=== PATIENT | female | born 1965 | race Caucasian/White ===

== ENCOUNTER → 2016-06-03 | Outpatient (CLI) | payer MEDICARE ==
--- NOTE | 2016-06-04 16:11 | XR ---
EXAMINATION TYPE: XR chest 2V DATE OF EXAM: 06/03/2016 3:08 PM COMPARISON: Prior chest x-ray November HISTORY: Cough TECHNIQUE: Frontal and lateral views of the chest are obtained. FINDINGS: There is no focal air space opacity, pleural effusion, or pneumothorax seen. The cardiac silhouette size is within normal limits. Port-A-Cath has been removed in the interval. There is bronc hial wall thickening. Positive spine sign noted on the lateral exam. The osseous structures are inta ct. IMPRESSION: Difficult to exclude a lower lobe pneumonia seen on the lateral exam but not localized o n the frontal view with certainty. Possible right lower lobe pneumonia. Follow-up suggested.
== END | disposition home or self-care (01) ==
LOC: RADXRYALE 14:58
PROVIDERS: ATTEND Internal Medicine
DX: R05 Cough (principal)
CPT/HCPCS: 71020

== ENCOUNTER → 2016-06-16 | Outpatient (CLI) | payer MEDICARE ==
--- NOTE | 2016-06-17 08:32 | XR ---
EXAMINATION TYPE: XR chest 2V DATE OF EXAM: 06/16/2016 10:29 AM COMPARISON: Prior chest x-ray third of June 2016 HISTORY: Pneumonia, cough and shortness of breath TECHNIQUE: Frontal and lateral views of the chest are obtained. FINDINGS: No significant interval change. Cardiomediastinal silhouette, pulmonary vascularity and hi la are within normal limits. There is no airspace disease, pneumothorax, or pleural effusion. Promine nt lung volume may be indicative of COPD. Improvement in the density seen on the lateral exam. Bronch ial wall thickening is present. IMPRESSION: Correlate for bronchitis, reactive airways disease
== END | disposition home or self-care (01) ==
LOC: RADXRYALE 10:17
PROVIDERS: ATTEND Internal Medicine
DX: J18.9 Pneumonia, unspecified organism (principal)
CPT/HCPCS: 71020

== ENCOUNTER → 2016-06-24 | Outpatient (CLI) | payer MEDICARE ==
--- NOTE | 2016-06-24 19:56 | CT ---
EXAMINATION TYPE: CT chest w con DATE OF EXAM: 06/24/2016 7:21 PM COMPARISON: 12/06/2013 HISTORY: Pt states of pneumonia. Hx of lymphoma. CT DLP: 790 mGycm Automated exposure control for dose reduction was used. CONTRAST: CT scan of the chest is performed with IV Contrast, patient injected with 90 mL of Omnipaque 300. FINDINGS: There is a linear 3 x 1 cm area of consolidation and atelectasis in the posterior medial right lower lobe. The other lung carrera are clear. There is no pleural effusion. Heart size is normal. There is n o pericardial effusion. There are no hilar masses. There are small mediastinal lymph nodes that measu re up to 1 cm. There is density anterior to the pulmonary artery that measures 3.5 x 1.5 cm consisten t with mild adenopathy or mediastinal mass. There is no evidence of aortic aneurysm or dissection. Aamir ny thorax is intact. IMPRESSION: Compared to the old CT scan of 12/06/2013 the enlarged mediastinal lymph nodes that were p resent are decreased significantly in size. There is a residual 3.5 x 1.5 cm anterior mediastinal den sity that is stable. There is essentially complete clearing of the right axillary adenopathy compared to old exam. There is new linear infiltrate and atelectasis in the right lower lobe. The clinical significance of this is not clear.
== END | disposition home or self-care (01) ==
LOC: RADCTMAIN 18:45
PROVIDERS: ATTEND Internal Medicine Hematology & Oncology
DX: C85.90 Non-Hodgkin lymphoma, unspecified, unspecified site (principal); J98.11 Atelectasis; R91.8 Other nonspecific abnormal finding of lung field; R59.0 Localized enlarged lymph nodes
CPT/HCPCS: 71260; Q9967

== ENCOUNTER 2017-02-18 17:59 | Emergency (ER) | payer MEDICARE ==
[2017-02-18 18:11] VITALS: BP 141/75; PULSE 113; RESP 18; TEMP 97.6
--- NOTE | 2017-02-18 18:19 | ED ---
General Adult HPI - General Chief complaint: Extremity Injury, Lower Stated complaint: Knee Injury, numb from hip down Time Seen by Provider: 02/18/17 18:13 Source: patient, RN notes reviewed Mode of arrival: ambulatory Limitations: no limitations - History of Present Illness Initial comments: 51-year-old female presents emergency 5 chief complaint of left knee pain. Patient states that she twisted her knee. Patient states now has pain to the anterior aspect the knee. Patient states his history of knee injury from years ago and never really had followed up on. Patient states now this pain has reoccurred. Patient denies any hip pain or ankle pain she states the numbness type pain throughout the leg. Patient denies any other symptoms at this time. Patient is able to ambulate. Patient denies any recent fever, chills, shortness of breath, chest pain, back pain, abdominal pain, nausea vomiting, numbness or tingling, dysuria or hematuria, constipation or diarrhea, headaches or visual changes, or any other current symptoms. - Related Data Home Medications Medication Instructions Recorded Confirmed No Known Home Medications [No 10/04/14 10/04/14 Known Home Medications] Allergies Allergy/AdvReac Type Severity Reaction Status Date / Time morphine AdvReac Unknown Nausea & Verified 02/18/17 18:11 Vomiting Review of Systems ROS Statement: Those systems with pertinent positive or pertinent negative responses have been documented in the HPI. ROS Other: All systems not noted in ROS Statement are negative. Past Medical History Past Medical History: Cancer Additional Past Medical History / Comment(s): hodgkins lymphoma, migraines History of Any Multi-Drug Resistant Organisms: None Reported Past Surgical History: Section, Hysterectomy, Orthopedic Surgery, Tubal Ligation Additional Past Surgical History / Comment(s): X2, BONE MARROW , portacath insertion Past Anesthesia/Blood Transfusion Reactions: Motion Sickness Past Psychological History: No Psychological Hx Reported Smoking Status: Former smoker Past Alcohol Use History: None Reported Past Drug Use History: None Reported - Past Family History Mother Family Medical History: No Reported History General Exam - General Exam Comments Initial Comments: General: The patient is awake and alert, in no distress, and does not appear acutely ill. Neck: The neck is supple, there is no tenderness. Cardiovascular: There is a regular rate and rhythm. No murmur, rub or gallop is appreciated. Respiratory: Lungs are clear to auscultation, respirations are non-labored, breath sounds are equal. No wheezes, stridor, rales, or rhonchi. Musculoskeletal: Sensation intact with 2+ pulses. Left flexion. Turkish motion of left hip. Patient does have pain with full extension of left knee and tenderness to the anterior aspect. Patient has no pain to palpation of the left ankle with no swelling noted. Neurological: CN II-XII intact, There are no obvious motor or sensory deficits. Coordination appears grossly intact. Speech is normal. Skin: Skin is warm and dry and no rashes or lesions are noted. Psychiatric: Normal mood and affect. Limitations: no limitations Course Vital Signs 02/18/17 18:04 Temperature 97.6 F Pulse Rate 113 H Respiratory 18 Rate Blood Pressure 141/75 O2 Sat by Pulse 95 Oximetry Medical Decision Making - Medical Decision Making 51-year-old presents with what appears to be a left knee sprain. Patient x- rays. We discussed continued follow-up dorsal. We discussed return parameters outpatient family's questions. He stated that she understood and she is very plan. All questions have any actual be discharged. - Radiology Data Radiology results: report reviewed, image reviewed Disposition Clinical Impression: Knee sprain Disposition: HOME SELF-CARE Condition: Stable Instructions: Knee Pain (ED) Additional Instructions: Please use medication as discussed. Please follow up with family doctor if symptoms have not improved over the next two days. Please return to the emergency room if your symptoms increase or worsen or for any other concerns. Referrals: Josefa St MD [Primary Care Provider] - 1-2 days Tacos Ochoa MD [STAFF PHYSICIAN] - 1-2 days Time of Disposition: 18:44
--- NOTE | 2017-02-18 18:41 | XR ---
PROCEDURE: XR knee complete LT DATE AND TIME: 02/18/2017 6:29 PM REFERRING PHYSICIAN: Vidya Clark CLINICAL INDICATION: PHH, Pain after twisting injury 3 days ago TECHNIQUE: 3 views. COMPARISON: None FINDINGS: There is no fracture or malalignment. The soft tissues are unremarkable. IMPRESSION: NO ACUTE PROCESS.
== END 2017-02-18 18:56 | disposition home or self-care (01) ==
LOC: EC 17:59
DX: S83.92XA Sprain of unspecified site of left knee, initial encounter (principal); Z87.891 Personal history of nicotine dependence; Z85.71 Personal history of Hodgkin lymphoma; Z88.5 Allergy status to narcotic agent; X50.1XXA Overexertion from prolonged static or awkward postures, initial encounter
CPT/HCPCS: 99283

== ENCOUNTER → 2017-04-24 | Outpatient (CLI) | payer MEDICARE ==
--- NOTE | 2017-04-27 07:56 | MM ---
Reason for exam: screening (asymptomatic). Last mammogram was performed 1 year and 5 months ago. History: Patient has history of other cancer at age 48. Family history of breast cancer in 2 maternal aunts. Physical Findings: A clinical breast exam by your physician is recommended on an annual basis and results should be correlated with mammographic findings. MG Screening Mammo w CAD Bilateral CC and MLO view(s) were taken. Prior study comparison: November 22, 2015, bilateral MG screening mammo w CAD. June 13, 2014, bilateral MG screening mammo w CAD. April 27, 2013, bilateral digital screening mammo w/CAD. There are scattered fibroglandular densities. There is chronic nodularity in the left breast. No significant changes when compared with prior studies. ASSESSMENT: Negative, BI-RAD 1 RECOMMENDATION: Routine screening mammogram of both breasts in 1 year.
== END | disposition home or self-care (01) ==
LOC: RADMAMWWP 10:27
PROVIDERS: ATTEND Internal Medicine
DX: Z12.31 Encounter for screening mammogram for malignant neoplasm of breast (principal)

== ENCOUNTER → 2018-01-22 | Outpatient (CLI) | payer MEDICARE ==
--- NOTE | 2018-01-22 15:16 | MR ---
EXAMINATION TYPE: MR lumbar spine wo/w con DATE OF EXAM: 01/22/2018 COMPARISON: Lumbar spine x-ray May 18, 2017. Prior CT chest abdomen and pelvis December 06, 2013 HISTORY: LBP, lt side sciatica x 4 years. History of Hodgkin lymphoma. TECHNIQUE: Multiplanar, multisequence images of the lumbar spine is performed without and with IV contrast, util izing 7.5 mL intravenous Gadavist FINDINGS: Sagittal images of the lumbar spine show vertebral body heights and alignment to appear sat isfactory. Multilevel disc desiccation is seen but disc space heights are fairly well-maintained with exception of mild disc space narrowing L5-S1 level. No suspicious posterior disc herniations are see n on sagittal images. The conus medullaris is slightly lower in position ending superior L2 level. N o abnormal signal is present. The bone marrow signal intensity is within normal limits. No suspicious postcontrast enhancement is seen. Axial images show the T12-L1, L1-L2, L2-L3, and L3-L4 levels all to appear within normal limits. Axial images at the L4-L5 level show mild facet degenerative changes and ligamentum flavum hypertroph y mildly effacing posterior lateral thecal sac. There is mild broad disc bulge but spinal canal is pr eserved. Bilateral neural foramina show mild anterior inferior neural foraminal narrowing. Axial images at L5-S1 level show moderate facet degenerative changes bilaterally. Spinal canal is pre served. Bilateral neural foramina are patent. No suspicious retroperitoneal findings are identified. No definitive suspicious recurrent retroperito ema adenopathy is noted. No suspicious enhancement is noted. IMPRESSION: Mild degenerative changes in the lower lumbar spine as detailed above. No significant fin ding is seen to account for patient's left-sided radiculopathy type symptoms.
== END ==
LOC: RADMRIMAIN 13:59
PROVIDERS: ATTEND Internal Medicine
DX: M48.07 Spinal stenosis, lumbosacral region (principal); M99.73 Connective tissue and disc stenosis of intervertebral foramina of lumbar region; M47.817 Spondylosis without myelopathy or radiculopathy, lumbosacral region
CPT/HCPCS: 72158; A9581

== ENCOUNTER → 2018-02-04 | Outpatient (CLI) | payer MEDICARE ==
--- NOTE | 2018-02-04 09:51 | US ---
EXAMINATION TYPE: US pelvic complete DATE OF EXAM: 02/04/2018 COMPARISON: CT 12/06/2013 CLINICAL HISTORY: R19.05 SUPRAPUBIC MASS,R59 LYMPHADENOPATHY. Palpable lump in right pubic region. H ysterectomy, right ovary removed. History of lymphoma TECHNIQUE: . Transabdominal sonographic images of the pelvis were acquired. Date of LMP: 1991 EXAM MEASUREMENTS: Uterus: Surgically absent Endometrial Stripe: Surgically absent Right Ovary: Surgically absent Left Ovary: 2.5 x 1.2 x 1.8 cm 1. Uterus: Surgically absent 2. Endometrium: Surgically absent 3. Right Ovary: Surgically absent 4. Left Ovary: wnl 5. Bilateral Adnexa: wnl 6. Posterior cul-de-sac: wnl Hyperechoic area visualized at the patient's palpable measuring 2.6 x 1.3 x 1.3 cm, possible lipoma v s other etiology. A lymph node could be considered. This is not a typical appearance for a lymph node . Pelvic CT is recommended for additional evaluation. IMPRESSION: 1. Echogenic foci within the palpable region could be a complex lymph node. Recommend CT pelvis for a dditional evaluation. 2. Pelvic ultrasound is otherwise unremarkable.
--- NOTE | 2018-02-04 09:53 | US ---
EXAMINATION TYPE: US abdomen complete DATE OF EXAM: 02/04/2018 COMPARISON: CT 12/06/2013 CLINICAL HISTORY: R19.05 SUBRAPUBIC MASS,R59 LYMPHADENOPATHY. History of lymphoma. Difficult and limi andres exam due to patient's body habitus EXAM MEASUREMENTS: Liver Length: 16.8 cm Gallbladder Wall: 0.2 cm CBD: 0.6 cm Spleen: 9.7 cm Right Kidney: 10.5 x 4.5 x 4.5 cm Left Kidney: 11.6 x 5.2 x 4.5 cm Pancreas: Obscured by bowel gas Liver: Heterogeneous and echogenic echotexture. Findings can be compatible with moderate fatty infil tration. Hypoechoic area visualized adjacent to the gallbladder measuring 0.8 x 0.6x 0.9, possible fa tty sparring vs other Gallbladder: No stones visualized Evidence for sonographic Zabala's sign: No CBD: Measuring upper limits of normal, distal portion obscured by bowel gas Spleen: wnl Right Kidney: No hydronephrosis or masses seen Left Kidney: No hydronephrosis or masses seen Upper IVC: wnl Abd Aorta: Proximal portion obscured by bowel gas, visualized portions wnl IMPRESSION: 1. Moderate fatty infiltration of the liver.
== END | disposition home or self-care (01) ==
LOC: RADUSWWP 07:06
PROVIDERS: ATTEND Internal Medicine Hematology & Oncology
DX: K76.0 Fatty (change of) liver, not elsewhere classified (principal); R19.05 Periumbilic swelling, mass or lump
CPT/HCPCS: 76700; 76856

== ENCOUNTER 2018-03-17 09:01 | Day surgery (SDC) | payer MEDICARE ==
[2018-03-17] MEDS ORDERED: ALPRAZolam 0.5 MG TAB PO ONE (09:16)
[2018-03-17 09:19] VITALS: BP 157/92; PULSE 82; RESP 18; TEMP 97.7
--- NOTE | 2018-03-17 10:49 | US ---
EXAMINATION TYPE: US biopsy soft tissue/muscle DATE OF EXAM: 03/17/2018 HISTORY: Pubic mass. FINDINGS: Maximal barrier technique was utilized. The skin overlying a suitable path to the patient' s pubic mass was localized with ultrasound and the overlying skin prepped and draped. Ultrasound was utilized with sterile technique. Lidocaine was used for local anesthesia. A skin kristina was made wit h a scalpel. An 18-gauge needle was advanced under direct ultrasound guidance and core specimen obta ined of the mass. Specimen submitted on wet Telfa to Pathology. Following the procedure, hemostasis achieved and the patient is discharged in stable condition without complication. IMPRESSION:STATUS POST ULTRASOUND GUIDED CORE BIOPSY OF pubic MASS, PATHOLOGY IS PENDING. THIS PROCE DURE IS PERFORMED BY THE UNDERSIGNED.
== END 2018-03-17 10:40 | disposition home or self-care (01) ==
LOC: RADPROMAIN 09:01
PROVIDERS: ATTEND Internal Medicine Hematology & Oncology
DX: R19.09 Other intra-abdominal and pelvic swelling, mass and lump (principal); C85.90 Non-Hodgkin lymphoma, unspecified, unspecified site
CPT/HCPCS: 20206; 49180; 76942; 88305

== ENCOUNTER → 2018-07-24 | Outpatient (CLI) | payer MEDICARE ==
--- NOTE | 2018-07-26 10:50 | PE ---
EXAMINATION TYPE: PET CT fusion skull to thigh DATE OF EXAM: 07/24/2018 COMPARISON: CT chest 06/24/2016 Prior PET/CT: 07/08/2014 HISTORY: Lymphoma TECHNIQUE: Following the intravenous administration of 14.4 mCi of F-18 FDG, whole body images are p erformed from the skull base to the midthigh. Images are reviewed on the computer in the coronal, ax ial, and sagittal planes. Reconstructed rotating images are created on independent workstation and r eviewed on the computer. A localization and attenuation correction CT is performed in conjunction w ith the PET scan. DLP: 449.70 mGycm SCAN: Subsequent Blood glucose: 109 mg/dL Average Mediastinum SUV: 1.2 Average Liver SUV: 1.7 FINDINGS: NECK: No abnormal uptake THORAX: No abnormal uptake. A pretracheal lymph node which is not enlarged by CT criteria measures 0.8 cm and has an SUV value 1. 14. ABDOMEN: No abnormal uptake PELVIS: No abnormal uptake OSSEOUS STRUCTURES: No abnormal uptake LOCALIZATION CT: There is some mild prominence of the left submandibular gland. Minimal coronary ruy ry calcification is present. The ascending thoracic aorta at the level of main pulmonary artery is 2. 8 cm patent main pulmonary artery bifurcation is 2.4 cm. In the pretracheal space there is a somewhat prominent lymph node with a transverse dimension of 0.8 cm which is not enlarged by CT criteria. Couple small shotty nodes in the anterior superior mediastin um. No abnormal radiotracer accumulation is evident within the structures. The pretracheal lymph node has an SUV value 1.14. COMPARISON: Findings are similar to 2013. IMPRESSION: 1. No suspicious changes to suggest recurrent or metastatic lymphoma.
== END | disposition home or self-care (01) ==
LOC: RADPETMAIN 07:37
PROVIDERS: ATTEND Internal Medicine Hematology & Oncology
DX: C81.71 Other Hodgkin lymphoma, lymph nodes of head, face, and neck (principal)
CPT/HCPCS: 78815; A9552

== ENCOUNTER → 2018-07-26 | Outpatient (CLI) | payer MEDICARE ==
--- NOTE | 2018-07-27 09:21 | MM ---
Reason for exam: screening (asymptomatic). Last mammogram was performed 1 year and 3 months ago. History: Patient has history of other cancer at age 48. Family history of breast cancer in 2 maternal aunts. Physical Findings: A clinical breast exam by your physician is recommended on an annual basis and results should be correlated with mammographic findings. MG Screening Mammo w CAD Bilateral CC and MLO view(s) were taken. Prior study comparison: April 24, 2017, bilateral MG screening mammo w CAD. November 22, 2015, bilateral MG screening mammo w CAD. The breast tissue is heterogeneously dense. This may lower the sensitivity of mammography. There are benign appearing round calcifications bilaterally. There is chronic nodularity in the left breast. There is no discrete abnormality. ASSESSMENT: Benign, BI-RAD 2 RECOMMENDATION: Routine screening mammogram of both breasts in 1 year.
== END | disposition home or self-care (01) ==
LOC: RADMAMWWP 07:46
PROVIDERS: ATTEND Internal Medicine
DX: Z12.31 Encounter for screening mammogram for malignant neoplasm of breast (principal)
CPT/HCPCS: 77067

== ENCOUNTER → 2020-02-27 | Outpatient (CLI) | payer MEDICARE ==
--- NOTE | 2020-02-28 13:58 | MM ---
Reason for exam: screening (asymptomatic). Last mammogram was performed 1 year and 7 months ago. History: Patient has history of other cancer at age 48. Family history of breast cancer in 2 maternal aunts. Physical Findings: A clinical breast exam by your physician is recommended on an annual basis and results should be correlated with mammographic findings. MG Screening Mammo w CAD Bilateral CC and MLO view(s) were taken. Prior study comparison: July 26, 2018, bilateral MG screening mammo w CAD. April 24, 2017, bilateral MG screening mammo w CAD. There is chronic nodularity in the left breast. No significant changes when compared with prior studies. ASSESSMENT: Benign, BI-RAD 2 RECOMMENDATION: Routine screening mammogram of both breasts in 1 year.
== END | disposition home or self-care (01) ==
LOC: RADMAMWWP 13:21
PROVIDERS: ATTEND Internal Medicine
DX: Z12.31 Encounter for screening mammogram for malignant neoplasm of breast (principal)
CPT/HCPCS: 77067

== ENCOUNTER 2020-11-27 12:52 | Inpatient (IN) | payer MEDICARE ==
[2020-11-27] MEDS ORDERED: NITROGLYCERIN OINT 1 INCH/GM PACKET TOPICAL STA (13:23)
[2020-11-27] MEDS ORDERED: ASPIRIN 81 MG PO STA (13:23)
[2020-11-27] MEDS ORDERED: SODIUM CHLORIDE 0.9% 500 ML 500 ML IV STA (13:23)
--- NOTE | 2020-11-27 13:26 | ED ---
General Adult HPI - General Chief complaint: Chest Pain Stated complaint: chest pain Time Seen by Provider: 11/27/20 13:00 Source: patient, RN notes reviewed, old records reviewed Mode of arrival: wheelchair Limitations: no limitations - History of Present Illness Initial comments: This a 55-year-old female whose past medical history significant for high cholesterol. Patient states she comes to the emergency department today because she's been having intermittent chest pain since Thursday. Patient states the pain when it comes it makes her short of breath and radiates down to both arms and she has had some vomiting associated with. Patient states currently she is chest pain-free. Patient states the pain sometimes will last upwards of 4 hours . Patient states it is a pressure sensation in the middle of her chest. Patient states she's not had any heart problems in the past. Patient denies any recent fever chills or cough. Patient denies any swelling in her legs or calf tenderness. Patient denies abdominal pain. Patient denies nausea vomiting currently. - Related Data Home Medications Medication Instructions Recorded Confirmed Aspirin 81 mg PO ONCE 11/27/20 11/27/20 Ibuprofen [Motrin] 800 mg PO Q8H PRN 11/27/20 11/27/20 Allergies Allergy/AdvReac Type Severity Reaction Status Date / Time morphine AdvReac Unknown Nausea & Verified 11/27/20 13:58 Vomiting Review of Systems ROS Statement: Those systems with pertinent positive or pertinent negative responses have been documented in the HPI. ROS Other: All systems not noted in ROS Statement are negative. Past Medical History Past Medical History: Cancer Additional Past Medical History / Comment(s): hodgkins lymphoma, migraines History of Any Multi-Drug Resistant Organisms: None Reported Past Surgical History: Section, Hysterectomy, Orthopedic Surgery, Tubal Ligation Additional Past Surgical History / Comment(s): X2, BONE MARROW 12/28/12, portacath insertion insertion and removal. Past Anesthesia/Blood Transfusion Reactions: No Reported Reaction Past Psychological History: No Psychological Hx Reported Smoking Status: Never smoker Past Alcohol Use History: None Reported Past Drug Use History: None Reported - Past Family History Mother Family Medical History: No Reported History General Exam - General Exam Comments Initial Comments: GENERAL: Patient is well-developed and well-nourished. Patient is nontoxic and well- hydrated and is in no acute distress. ENT: Neck is soft and supple. No significant lymphadenopathy is noted. Oropharynx is clear. Moist mucous membranes. Neck has full range of motion without eliciting any pain. EYES: The sclera were anicteric and conjunctiva were pink and moist. Extraocular movements were intact and pupils were equal round and reactive to light. Eyelids were unremarkable. PULMONARY: Unlabored respirations. Good breath sounds bilaterally. No audible rales rhon chi or wheezing was noted. CARDIOVASCULAR: There is a regular rate and rhythm without any murmurs gallops or rubs. ABDOMEN: Soft and nontender with normal bowel sounds. No palpable organomegaly was noted. There is no palpable pulsatile mass. SKIN: Skin is clear with no lesions or rashes and otherwise unremarkable. NEUROLOGIC: Patient is alert and oriented x3. Cranial nerves II through XII are grossly intact. Motor and sensory are also intact. Normal speech, volume and content. Symmetrical smile. MUSCULOSKELETAL: Normal extremities with adequate strength and full range of motion. No lower extremity swelling or edema. No calf tenderness. LYMPHATICS: No significant lymphadenopathy is noted PSYCHIATRIC: Normal psychiatric evaluation. Limitations: no limitations Course Vital Signs 11/27/20 11/27/20 12:55 14:32 Temperature 98.3 F Pulse Rate 102 H 94 Respiratory 19 18 Rate Blood Pressure 167/94 154/94 O2 Sat by Pulse 98 98 Oximetry Medical Decision Making - Medical Decision Making EKG shows sinus tachycardia at 101 bpm GA interval 122 QRS is 88 QT interval 372 QTC is 42. Patient's EKG shows T-wave inversions in leads 1 and aVL as well as precordial leads V2 through the 6. Patient also has a biphasic T-wave in V3 Chest shows no acute abnormality. Patient's troponin was elevated so started the patient on heparin after heparin bolus. I spoke with cardiology he wanted the patient heparin Nitropaste and Coreg I spoke with Dr. Bishop he agreed to admit the patient admitted the patient wrote admitting orders. I continued as per heparin Nitropaste before and I consult to cardiology - Lab Data Result diagrams: 11/27/20 13:29 11/27/20 13:29 Lab Results 11/27/20 11/27/20 11/27/20 Range/Units 13:29 13: 13:29 WBC 12.3 H (3.8-10.6) k/uL RBC 5.15 (3.80-5.40) m/uL Hgb 14.9 (11.4-16.0) gm/dL Hct 42.1 (34.0-46.0) % MCV 81.8 (80.0-100.0) fL MCH 28.9 (25.0-35.0) pg MCHC 35.3 (31.0-37.0) g/dL RDW 12.8 (11.5-15.5) % Plt Count 217 (150-450) k/uL MPV 6.7 Neutrophils % 67 % Lymphocytes % 27 % Monocytes % 4 % Eosinophils % 1 % Basophils % 0 % Neutrophils # 8.3 H (1.3-7.7) k/uL Lymphocytes # 3.3 (1.0-4.8) k/uL Monocytes # 0.5 (0-1.0) k/uL Eosinophils # 0.1 (0-0.7) k/uL Basophils # 0.0 (0-0.2) k/uL PT 10.2 (9.0-12.0) sec INR 0.9 (<1.2) APTT 23.4 (22.0-30.0) sec Sodium 140 (137-145) mmol/L Potassium 4.1 (3.5-5.1) mmol/L Chloride 104 (98-107) mmol/L Carbon Dioxide 27 (22-30) mmol/L Anion Gap 9 mmol/L BUN 16 (7-17) mg/dL Creatinine 0.72 (0.52-1.04) mg/dL Est GFR (CKD-EPI)AfAm >90 (>60 ml/min/1.73 sqM) Est GFR (CKD-EPI)NonAf >90 (>60 ml/min/1.73 sqM) Glucose 152 H (74-99) mg/dL Calcium 9.7 (8.4-10.2) mg/dL Magnesium 1.9 (1.6-2.3) mg/dL Total Bilirubin 0.7 (0.2-1.3) mg/dL AST 51 H (14-36) U/L ALT 28 (4-34) U/L Alkaline Phosphatase 70 (38-126) U/L Troponin I (0.000-0.034) ng/mL Total Protein 7.0 (6.3-8.2) g/dL Albumin 4.3 (3.5-5.0) g/dL 11/27/20 Range/Units 13:29 WBC (3.8-10.6) k/uL RBC (3.80-5.40) m/uL Hgb (11.4-16.0) gm/dL Hct (34.0-46.0) % MCV (80.0-100.0) fL MCH (25.0-35.0) pg MCHC (31.0-37.0) g/dL RDW (11.5-15.5) % Plt Count (150-450) k/uL MPV Neutrophils % % Lymphocytes % % Monocytes % % Eosinophils % % Basophils % % Neutrophils # (1.3-7.7) k/uL Lymphocytes # (1.0-4.8) k/uL Monocytes # (0-1.0) k/uL Eosinophils # (0-0.7) k/uL Basophils # (0-0.2) k/uL PT (9.0-12.0) sec INR (<1.2) APTT (22.0-30.0) sec Sodium (137-145) mmol/L Potassium (3.5-5.1) mmol/L Chloride (98-107) mmol/L Carbon Dioxide (22-30) mmol/L Anion Gap mmol/L BUN (7-17) mg/dL Creatinine (0.52-1.04) mg/dL Est GFR (CKD-EPI)AfAm (>60 ml/min/1.73 sqM) Est GFR (CKD-EPI)NonAf (>60 ml/min/1.73 sqM) Glucose (74-99) mg/dL Calcium (8.4-10.2) mg/dL Magnesium (1.6-2.3) mg/dL Total Bilirubin (0.2-1.3) mg/dL AST (14-36) U/L ALT (4-34) U/L Alkaline Phosphatase (38-126) U/L Troponin I 1.280 H* (0.000-0.034) ng/mL Total Protein (6.3-8.2) g/dL Albumin (3.5-5.0) g/dL Critical Care Time Critical Care Time: Yes Total Critical Care Time: 35 Disposition Clinical Impression: Acute non-ST elevation myocardial infarction (NSTEMI) Disposition: ADMITTED IP TO THIS HOSP Referrals: Josefa St MD [Primary Care Provider] - 1-2 days Time of Disposition: 15:38
[2020-11-27 13:43] LABS: Basophils % (A) 0 %; Eosinophils # (A) 0.1 k/uL (0-0.7); Eosinophils % (A) 1 %; HCT 42.1 % (34.0-46.0); HGB 14.9 gm/dL (11.4-16.0); Lymphocytes # (A) 3.3 k/uL (1.0-4.8); Lymphocytes % (A) 27 %; MCH 28.9 pg (25.0-35.0); MCHC 35.3 g/dL (31.0-37.0); MCV 81.8 fL (80.0-100.0); Mean Platelet Volume 6.7; Monocytes # (A) 0.5 k/uL (0-1.0); Monocytes % (A) 4 %; Neutrophils # (A) 8.3 k/uL (1.3-7.7); Neutrophils % (A) 67 %; Platelet Count 217 k/uL (150-450); RBC 5.15 m/uL (3.80-5.40); RDW 12.8 % (11.5-15.5); WBC 12.3 k/uL (3.8-10.6)
--- NOTE | 2020-11-27 13:52 | XR ---
EXAMINATION TYPE: XR chest 2V DATE OF EXAM: 11/27/2020 COMPARISON: 06/16/2016 HISTORY: Shortness of breath TECHNIQUE: Frontal and lateral views of the chest are obtained. FINDINGS: Scattered senescent parenchymal changes noted. Hyperinflation compatible with COPD. No evidence for infiltrate. No evidence for atelectasis. Heart size is stable. Mediastinal structures are stable and grossly unremarkable. No evidence for hilar prominence. Degenerative changes dorsal spine. IMPRESSION: 1. No evidence for acute pulmonary disease.
[2020-11-27 14:02] LABS: INR 0.9 (<1.2); Partial Thromboplastin Time 23.4 sec (22.0-30.0); Prothrombin Time 10.2 sec (9.0-12.0)
[2020-11-27 14:11] LABS: ALT 28 U/L (4-34); AST 51 U/L (14-36); African American GFR (CKD) >90 (>60 ml/min/1.73 sqM); Albumin 4.3 g/dL (3.5-5.0); Alkaline Phosphatase 70 U/L (38-126); Anion Gap 9 mmol/L; Blood Urea Nitrogen 16 mg/dL (7-17); Calcium 9.7 mg/dL (8.4-10.2); Carbon Dioxide 27 mmol/L (22-30); Chloride 104 mmol/L (98-107); Glucose 152 mg/dL (74-99); Magnesium 1.9 mg/dL (1.6-2.3); Non-African American GFR(CKD) >90 (>60 ml/min/1.73 sqM); Potassium 4.1 mmol/L (3.5-5.1); Sodium 140 mmol/L (137-145); Total Bilirubin 0.7 mg/dL (0.2-1.3)
[2020-11-27] MEDS ORDERED: HEPARIN SODIUM 1,000 UN/ML (10ML VL) IV ONE (14:50)
[2020-11-27] MEDS ORDERED: carvediloL 3.125 MG TAB PO STA (15:37)
[2020-11-27] MEDS ORDERED: NITROGLYCERIN SL TABS 0.4 MG TAB SUBLINGUAL PRN (15:39)
[2020-11-27] MEDS: HEPARIN SOD,PORK IN 0.45% NACL 25,000 UNIT in 0.45% NACL 1 250ML.BAG IV SCH (15:40)
[2020-11-27] MEDS: NITROGLYCERIN OINT 1 INCH/GM PACKET TOPICAL SCH (18:49)
[2020-11-27] MEDS ORDERED: IBUPROFEN 400 MG TAB PO PRN ×2 (21:11→21:46)
--- NOTE | 2020-11-27 21:33 | P.HPIM ---
History of Present Illness H&P Date: 11/27/20 Chief Complaint: Chest pain Patient is 55-year-old female with a known history of Hodgkin's lymphoma, migraine headaches and previous history of smoking presents to ER with co mplaints of chest pain. Patient states that she has been having intermittent chest pains for the past 4 days., Since Thursday afternoon. She states that pain started with heartburn in the upper abdomen and across the anterior chest wall and radiating down the arms and elbows. Initially she developed pain when she was sitting outside at a graduation constitution party and was warm outside. She felt dizzy and diaphoretic. She has been having on and off chest pains since Thursday and last up to 4 hours. She went to the grocery shop and felt very exhausted and diaphoretic after walking in the store. Due to worsening symptoms patient presented to ER. No fever no chills. No cough or sputum production. No leg swelling. Chest x-ray showed no acute pulmonary process EKG showed sinus tachycardia with T wave inversions in the lateral leads. Laboratory test showed troponin I.28, 2.370 WBC12.3 hemoglobin 14.9 and platelets 217 Review of Systems Constitutional: Patient denies any fever or chills . No generalized weakness or weight loss. Abdomen: Patient denied nausea vomiting and diarrhea and abdominal pain. Cardiovascular: Patient does have chest pain associated shortness of breath exertional dyspnea. No palpitations. no leg swelling. Respiratory: patient denied any cough or sputum production. No shortness of breath Neurologic: Patient denied any numbness or tingling headache. Musculoskeletal: Patient denies any complaints of joint swelling or deformity. Skin: Negative Psychiatric: Negative Endocrine: No heat or cold intolerance. No recent weight gain. Genitourinary: No dysuria or hematuria. All other 14 point ROS negative except the above Past Medical History Past Medical History: Cancer Additional Past Medical History / Comment(s): hodgkins lymphoma, migraines History of Any Multi-Drug Resistant Organisms: None Reported Past Surgical History: Section, Hysterectomy, Orthopedic Surgery, Tubal Ligation Additional Past Surgical History / Comment(s): X2, BONE MARROW 12/28/12, portacath insertion insertion and removal. Past Anesthesia/Blood Transfusion Reactions: No Reported Reaction Past Psychological History: No Psychological Hx Reported Smoking Status: Former smoker Past Alcohol Use History: None Reported Past Drug Use History: None Reported - Past Family History Mother Family Medical History: No Reported History Medications and Allergies Home Medications Medication Instructions Recorded Confirmed Type Aspirin 81 mg PO ONCE 11/27/20 11/27/20 History Ibuprofen [Motrin] 800 mg PO Q8H PRN 11/27/20 11/27/20 History Allergies Allergy/AdvReac Type Severity Reaction Status Date / Time morphine AdvReac Unknown Nausea & Verified 11/27/20 13:58 Vomiting Physical Exam Vitals: Vital Signs Temp Pulse Pulse Resp BP BP Pulse Ox 11/27/20 18:37 99.1 F 97 16 126/85 97 11/27/20 18:07 98.3 F 95 18 122/79 98 11/27/20 16:00 91 18 140/88 98 11/27/20 15:00 94 18 98 11/27/20 14:32 94 18 154/94 98 11/27/20 12:55 98.3 F 102 H 19 167/94 98 Intake and Output 11/27/20 11/27/20 11/27/20 06:59 14:59 22:59 Other: Weight 85.729 kg 85.729 kg PHYSICAL EXAMINATION: Patient is lying in the bed comfortably, no acute distress, awake alert and oriented.. HEENT: Normocephalic. Neck is supple. Pupils reactive. Nostrils clear. Oral cavity is moist. Neck reveals no JVD, carotid bruits, or thyromegaly. CHEST EXAMINATION: Trachea is central. Symmetrical expansion. Lung carrera clear to auscultation and percussion. CARDIAC: Normal S1, S2 with no gallops. No murmurs ABDOMEN: Soft. Bowel sounds normal. No organomegaly. No abdominal bruits. Extremities: reveal no edema. No clubbing or cyanosis Neurologically awake, alert, oriented x3 with well-coordinated movements. No focal deficits noted Skin: No rash or skin lesions. Psychiatric: Coperative. Nonsuicidal Musculoskeletal: No joint swelling or deformity. Results CBC & Chem 7: 11/27/20 13:29 11/27/20 13:29 Labs: Abnormal Lab Results - Last 24 Hours (Table) 11/27/20 11/27/20 11/27/20 Range/Units 13:29 13:29 13:29 WBC 12.3 H (3.8-10.6) k/uL Neutrophils # 8.3 H (1.3-7.7) k/uL Glucose 152 H (74-99) mg/dL AST 51 H (14-36) U/L Troponin I 1.280 H* (0.000-0.034) ng/mL 11/27/20 Range/Units 18:41 WBC (3.8-10.6) k/uL Neutrophils # (1.3-7.7) k/uL Glucose (74-99) mg/dL AST (14-36) U/L Troponin I 2.370 H* (0.000-0.034) ng/mL Thrombosis Risk Factor Assmnt - DVT/VTE Prophylaxis DVT/VTE Prophylaxis: Pharmacologic Prophylaxis ordered Assessment and Plan Assessment: Acute non-ST elevated MD Chest pain and exertional dyspnea Hypertension uncontrolled on admission Hyperlipidemia History of Hodgkin's lymphoma History of migraine headaches Previous history of smoking DVT prophylaxis. Plan: Patient will be continued on telemetry. Started on heparin drip and serial EKG and troponins. Patient denied any active chest pain at this time. Continue with aspirin and lipid profile as ordered. Patient was given a dose of Coreg in the ER. Cardiology was consulted. Patient may need cardiac catheterization. Continue to follow closely. Time with Patient: Greater than 30
[2020-11-27] MEDS ORDERED: HEPARIN SODIUM 1,000 UN/ML (10ML VL) IV PRN (22:24)
[2020-11-28] MEDS: NITROGLYCERIN OINT 1 INCH/GM PACKET TOPICAL SCH ×3 (06:32→11:56)
[2020-11-28] MEDS ORDERED: ASPIRIN 325 MG TAB PO SCH (09:00)
[2020-11-28] MEDS: METOPROLOL TARTRATE 25 MG TAB PO SCH ×2 (09:41→20:40)
[2020-11-28 10:53] LABS: Chol/HDL Ratio 6.46; LDL Cholesterol,Calculated 113.2 mg/dL (0.0-131.0); VLDL Calculation 39.8 mg/dL (5.00-40.00)
[2020-11-28] MEDS: HEPARIN SOD,PORK IN 0.45% NACL 25,000 UNIT in 0.45% NACL 1 250ML.BAG IV SCH (11:18)
[2020-11-28] MEDS ORDERED: ALPRAZolam 0.25 MG TAB PO PRN (11:45)
[2020-11-28] MEDS ORDERED: ATORVASTATIN 80 MG TAB PO STA (11:45)
[2020-11-28] MEDS ORDERED: ASPIRIN 325 MG TAB PO STA (11:45)
[2020-11-28] MEDS ORDERED: ALPRAZolam 0.5 MG TAB PO PRN (11:45)
[2020-11-28] MEDS ORDERED: NITROGLYCERIN SL TABS 0.4 MG TAB SUBLINGUAL PRN ×2 (11:45→13:52)
[2020-11-28] MEDS ORDERED: SODIUM CHLORIDE 0.9% 1,000 ML in EMPTY BAG 1 BAG IV ONE (11:45)
--- NOTE | 2020-11-28 11:46 | P.CRDCN ---
History of Present Illness Consult date: 11/28/20 History of present illness: HISTORY OF PRESENT ILLNESS: This is a 55-year-old female with a past medical history significant for hyperlipidemia and family history of premature coronary artery disease. 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 We have been asked to see the patient in consultation for chest pain. Patient examined at the bedside. Patient states she began having a burning sensation in her chest on Thursday when she was at a graduation libertarian. She states the pain lasted for a few hours and then went away. She states she has been having intermittent chest pain since that time. She states that she is short of breath when she has this and it is worse with exertion. She also reports pain going down both of her arms to her elbows. She states the pain is a burning sensation and also a pressure in the middle of her chest. She reports feeling diaphoretic. She also reports nausea without episodes of vomiting. She denies dizziness or lightheadedness. At the time of examination, the patient appears to be no acute distress and is resting comfortably. She currently denies chest pain or pressure. Patient states she is a nonsmoker. She denies alcohol use. She states that her dad had a heart attack before the age of 60 but does not know exactly what age he was. EKG reveals sinus mechanism with T-wave inversions in anterolateral leads Chest xray negative for acute process Laboratory data: WBC 12.3. Hemoglobin 14.9. Platelet count 217. Sodium 140. Potassium 4.1. BUN 16. Creatinine 0.72. Magnesium 1.9. Troponin 1.280. 2.370. 2.260. Current home cardiac medications include none REVIEW OF SYSTEMS: At the time of my exam: CONSTITUTIONAL: Denies fever or chills. HEENT: Denies blurred vision, vision changes, or eye pain. Denies hemoptysis CARDIOVASCULAR: Denies chest pain. Denies orthopnea. Denies PND. Denies palpitations RESPIRATORY: Denies shortness of breath. GASTROINTESTINAL: Denies abdominal pain. Denies nausea or vomiting. HEMATOLOGIC: Denies bleeding disorders. GENITOURINARY: Denies any blood in urine. SKIN: Denies pruitis. Denies rash. PHYSICAL EXAM: VITAL SIGNS: Reviewed. GENERAL: Well-developed in no acute distress. HEENT: Head is normocephalic. Pupils are equal, round. Sclerae anicteric. Mucous membranes of the mouth are moist. Neck supple. No JVD or thyromegaly LUNGS: Respirations even and unlabored. Lungs essentially clear to auscultation bilaterally. HEART: Regular rate and rhythm. S1 and S2 heard. ABDOMEN: Soft. Nondistended. Nontender. EXTREMITIES: Normal range of motion. No clubbing or cyanosis. Peripheral pulses intact. No lower extremity edema NEUROLOGIC: Awake and alert. Oriented x 3. ASSESSMENT: Non-STEMI Hyperlipidemia Family history of premature coronary artery disease PLAN: Obtain 2D echo to assess cardiac structure and function Continue aspirin 81mg daily Continue metoprolol tartrate 25 mg twice a day Begin Lipitor 80 mg daily Obtain lipid panel Continue IV heparin Patient will undergo cardiac catheterization today with Dr. Gr Further recommendations pending patient's course Nurse practitioner note has been reviewed by physician. Signing provider agrees with the documented findings, assessment, and plan of care. Past Medical History Past Medical History: Cancer Additional Past Medical History / Comment(s): hodgkins lymphoma, migraines History of Any Multi-Drug Resistant Organisms: None Reported Past Surgical History: Section, Hysterectomy, Orthopedic Surgery, Tubal Ligation Additional Past Surgical History / Comment(s): X2, BONE MARROW , portacath insertion insertion and removal. Past Anesthesia/Blood Transfusion Reactions: No Reported Reaction Past Psychological History: No Psychological Hx Reported Smoking Status: Former smoker Past Alcohol Use History: None Reported Past Drug Use History: None Reported - Past Family History Mother Family Medical History: No Reported History Medications and Allergies Home Medications Medication Instructions Recorded Confirmed Type Aspirin 81 mg PO ONCE 11/27/20 11/27/20 History Ibuprofen [Motrin] 800 mg PO Q8H PRN 11/27/20 11/27/20 History Allergies Allergy/AdvReac Type Severity Reaction Status Date / Time morphine AdvReac Unknown Nausea & Verified 11/27/20 13:58 Vomiting Physical Exam Vitals: Vital Signs Temp Pulse Pulse Resp BP BP Pulse Ox 11/28/20 04:00 84 18 128/74 96 11/28/20 00:00 96 18 141/81 98 11/27/20 20:00 98.1 F 91 18 152/83 98 11/27/20 18:37 99.1 F 97 16 126/85 97 11/27/20 18:07 98.3 F 95 18 122/79 98 06/29/21 16:00 91 18 140/88 98 11/27/20 15:00 94 18 98 11/27/20 14:32 94 18 154/94 98 11/27/20 12:55 98.3 F 102 H 19 167/94 98 Intake and Output 11/27/20 11/28/20 11/28/20 22:59 06:59 14:59 Intake Total 68.455 Balance 68.455 Intake: Intake, IV Titration 68.455 Amount Heparin Sod,Pork in 0.45% 68.455 NaCl 25,000 unit In 0.45 % NaCl 1 250ml.bag @ 11.6 UNITS/KG/HR 9.945 mls/hr IV .Q24H [facility] Rx#: [id number] Other: Voiding Method Toilet Toilet # Voids 1 Weight 85.729 kg 84.9 kg Results 11/27/20 13:29 11/27/20 13:29 Cardiac Enzymes 11/27/20 11/27/20 11/27/20 Range/Units 13:29 13:29 18:41 AST 51 H (14-36) U/L Troponin I 1.280 H* 2.370 H* (0.000-0.034) ng/mL 11/27/20 Range/Units 21:29 AST (14-36) U/L Troponin I 2.260 H* (0.000-0.034) ng/mL Coagulation 11/27/20 11/27/20 11/28/20 Range/Units 13:29 21:29 04:32 PT 10.2 (9.0-12.0) sec APTT 23.4 30.8 H 54.5 H (22.0-30.0) sec CBC 11/27/20 Range/Units 13:29 WBC 12.3 H (3.8-10.6) k/uL RBC 5.15 (3.80-5.40) m/uL Hgb 14.9 (11.4-16.0) gm/dL Hct 42.1 (34.0-46.0) % Plt Count 217 (150-450) k/uL Comprehensive Metabolic Panel 11/27/20 Range/Units 13:29 Sodium 140 (137-145) mmol/L Potassium 4.1 (3.5-5.1) mmol/L Chloride 104 (98-107) mmol/L Carbon Dioxide 27 (22-30) mmol/L BUN 16 (7-17) mg/dL Creatinine 0.72 (0.52-1.04) mg/dL Glucose 152 H (74-99) mg/dL Calcium 9.7 (8.4-10.2) mg/dL AST 51 H (14-36) U/L ALT 28 (4-34) U/L Alkaline Phosphatase 70 (38-126) U/L Total Protein 7.0 (6.3-8.2) g/dL Albumin 4.3 (3.5-5.0) g/dL Current Medications Generic Name Dose Route Start Last Admin Trade Name Freq PRN Reason Stop Dose Admin Aspirin 325 mg 11/28/20 09:00 Aspirin 325 Mg Tab PO DAILY [facility] Heparin Sodium (Porcine) 0 unit 11/27/20 22:24 11/27/20 22:33 Heparin Sodium 1,000 Un/Ml (10ml Vl) IV 4,000 unit PER PROTOCOL PRN Administration Low PTT Protocol Heparin Sodium/Sodium Chloride 250 mls @ 9.945 mls/hr 11/27/20 15:00 11/27/20 22:33 25,000 unit/ Sodium Chloride IV 14.6 units/kg/hr .Q24H [facility] 12.516 mls/hr Titration Protocol 11.6 UNITS/KG/HR Ibuprofen 400 mg 11/27/20 21:46 11/27/20 21:49 Ibuprofen 400 Mg Tab PO 400 mg Q8HR PRN Administration Pain Nitroglycerin 0.4 mg 11/27/20 15:39 Nitroglycerin Sl Tabs 0.4 Mg Tab SUBLINGUAL Q5M PRN Chest Pain Nitroglycerin 1 inch 11/27/20 18:00 11/28/20 06:32 Nitroglycerin Oint 1 Inch/Gm Packet TOPICAL 1 inch Q6HR [facility] Administration Intake and Output 11/27/20 11/28/20 11/28/20 22:59 06:59 14:59 Intake Total 68.455 Balance 68.455 Intake: Intake, IV Titration 68.455 Amount Heparin Sod,Pork in 0.45% 68.455 NaCl 25,000 unit In 0.45 % NaCl 1 250ml.bag @ 11.6 UNITS/KG/HR 9.945 mls/hr IV .Q24H [facility] Rx#: [id number] Other: Voiding Method Toilet Toilet # Voids 1 Weight 85.729 kg 84.9 kg 11/27/20 13:29 11/27/20 13:29
[2020-11-28] MEDS: ASPIRIN 81 MG PO SCH (11:52)
[2020-11-28] MEDS ORDERED: VERAPAMIL 2.5 MG/ML 2 ML AMP ONE (12:57)
[2020-11-28] MEDS ORDERED: LIDOCAINE 1% INJ 10MG/ML (20 ML MDV) ONE (12:57)
[2020-11-28] MEDS ORDERED: fentaNYL (PF) 50 MCG/ML 2 ML AMP IVP ONE (13:10)
[2020-11-28] MEDS ORDERED: HEPARIN SODIUM 1,000 UN/ML (10ML VL) ONE (13:12)
[2020-11-28] MEDS ORDERED: fentaNYL (PF) 50 MCG/ML 2 ML AMP ONE (13:12)
[2020-11-28] MEDS ORDERED: MIDAZOLAM 2 MG/2 ML VIAL IVP ONE (13:13)
[2020-11-28] MEDS ORDERED: LIDOCAINE 1% INJ 10MG/ML (20 ML MDV) SQ ONE (13:13)
[2020-11-28] MEDS ORDERED: IV FLUID CONTINUATION 500 ML IV ONE (13:18)
[2020-11-28] MEDS ORDERED: HEPARIN SODIUM 1,000 UN/ML (10ML VL) IV ONE (13:25)
[2020-11-28] MEDS ORDERED: TICAGRELOR 90 MG TAB PO ONE (13:26)
[2020-11-28] MEDS ORDERED: TICAGRELOR 90 MG TAB ONE (13:28)
[2020-11-28] MEDS ORDERED: NITROGLYCERIN 1000MCG/10ML SYRINGE INTRACORON ONE (13:34)
[2020-11-28] MEDS ORDERED: IOPAMIDOL-370 125ML BTL INJ ONE (13:40)
[2020-11-28] MEDS ORDERED: IOPAMIDOL-370 100ML BTL INJ ONE (13:43)
[2020-11-28] MEDS ORDERED: ZOLPIDEM 5 MG TAB PO PRN (13:52)
[2020-11-28] MEDS ORDERED: RX INFO: IV CONTRAST WAS GIVEN 1 EACH MISC MISCELLANE PRN (13:52)
[2020-11-28] MEDS ORDERED: MAG HYDROX/AL HYDROX/SIMETH 30 ML CUP PO PRN (13:52)
[2020-11-28] MEDS ORDERED: ATROPINE SULFATE 0.1 MG/ML 10ML SYRINGE IV PRN (13:52)
[2020-11-28] MEDS ORDERED: SODIUM CHLORIDE 0.9% 1,000 ML IV SCH (14:00)
--- NOTE | 2020-11-28 14:57 | CC ---
CARDIAC CATHETERIZATION REPORT Mrs. Chowdhury is a 65-year-old female with a prior history of smoking, history of lymphoma who presented with symptoms of chest discomfort associated with T-wave inversion anteriorly and mild troponin elevation. She was evaluated by Dr. Kirk. Recommendations was made regarding cardiac catheterization. The procedure, risks and complications were discussed with the patient who is in full understanding and agreement. PROCEDURE: Patient was brought to the laboratory inspector in a fasting state after receiving fentanyl and Benadryl and achieving moderate conscious state. Using Xylocaine anesthesia and Seldinger technique a 6-[place] sheath was introduced in the right radial artery. Selective right and left coronary angiography performed using 5-[place] 3.5 bend right and left Maximilian catheter. Multiple views of the coronary artery including hemiaxial views obtained. Following that, the right Maximilian was used to cross the aortic valve. The left ventricular end-diastolic pressure was calculated. Following that, catheter was removed. Images were reviewed. FINDINGS: LEFT MAIN: This is a short size vessel, bifurcating into left circumflex, left anterior descending artery. Left main coronary artery has no evidence of high-grade stenosis. LEFT ANTERIOR DESCENDING ARTERY: This is a large-sized vessel reaching to the apex giving rise to 3 diagonal branches. Left anterior descending artery proximally has a 95% stenosis. The mid segment has mild to moderate intimal disease of 40% to 50%. The first septal lifestyle consultant is moderate in caliber and has an area of stenosis up to 70%. LEFT CIRCUMFLEX: This is a nondominant vessel giving rise to 2 obtuse marginal branches. After the takeoff of the first obtuse marginal branch, there is an area of stenosis of about 50-60 percent. The vessel beyond that is small in caliber. RIGHT CORONARY ARTERY: This is a dominant vessel, large in caliber, bifurcating distally into PDA and posterolateral segment and branches. The right coronary artery proximally has a 20% to 30% plaque. The mid and distal vessel have diffuse intimal disease up to 40%. LEFT VENTRICULOGRAM: Left ventriculogram is not performed. HEMODYNAMICS: There was no gradient across the aortic valve. The ventricle end-diastolic pressure was 20% to 24 mmHg. CONCLUSION: 1. Critical stenosis involving the proximal left anterior descending artery. 2. Mild diffuse intimal disease in the right coronary artery. 3. Moderate significant disease in the distal left circumflex. RECOMMENDATION: In view of the findings and anatomy, I recommend proceeding with angioplasty and stenting of the left anterior descending artery. The procedure as well as risks and complications were discussed with the patient who is in full understanding and agreement. MMODL / IJN: [id number] /
--- NOTE | 2020-11-28 15:02 | PTCA ---
PERCUTANEOUSTRANS CORORONARY ANGIOGRAPHY Mrs. Chowdhury is a 55-year-old female with known history of lymphoma, stable, prior history of smoking, who presented with non ST-segment elevation myocardial infarction, underwent cardiac catheterization and was found to have critical stenosis involving the proximal LAD. In view of that, recommendation was made regarding angioplasty and stenting. The procedure as well as the risks and the complications were discussed with the patient who is in full understanding and agreement. PROCEDURE: A 6-[place] 3.5 guiding catheter was introduced in the system. After cannulating the left main, a 0.014 balanced medium weight J-wire was advanced across the lesion and positioned distally. Then a 2.75 x 18 mm Xience Lexus stent was advanced, deployed and post dilated at 16 atmospheres. After the last inflation, after appropriate wait, the balloon and the guidewire were withdrawn back in the guiding catheter. Images were obtained and repeated. Those images revealed stable successful stenting. At that point, the guiding catheter, the balloon and the guidewire were removed. The sheath was removed. Hemostasis was obtained with deployment of a TR band. There was no immediate complication. Patient was returned to his room in stable condition. Of note, the patient received 7000 units of intravenous heparin as well as intra-arterial verapamil and oral loading dose of Brilinta. She has no chest discomfort or EKG changes with the inflations. RESULTS: Successful stenting of the proximal LAD with reduction of stenosis from 95% to 0%. RECOMMENDATIONS: Patient will be continued on aspirin, Brilinta, beta blockers, WILLY inhibitor and statin. The importance of dual antiplatelet treatment were discussed with the patient and her family who are in full understanding and agreement. Duration of sedation is 32 minutes. MMODL / IJN: [id number] /
--- NOTE | 2020-11-28 15:02 | LTR ---
DATE OF SERVICE: 11/28/[address]: I had the pleasure of performing cardiac catheterization and coronary angiography and stenting on Mrs. Chowdhury at [facility] on November 28 and a full copy of procedure note will be forwarded to you. In brief, she was found to have a critical stenosis involving the proximal left anterior descending artery, underwent successful stenting of that vessel using a drug- eluting stent. I am hopeful that this procedure will stabilize her status. Thank you again for allowing me to participate in her care. Please feel free to call for any questions. Sincerely, CHRIS / KENZIEN: [id number] /
[2020-11-28] MEDS ORDERED: FUROSEMIDE 10 MG/ML 4 ML VIAL IV STA (16:09)
[2020-11-28] MEDS: LORazepam 2 MG/ML INJ IV STA ×2 (16:12→16:25)
[2020-11-28] MEDS ORDERED: NITROGLYCERIN-D5W PMX 50 MG in DEXTROSE/WATER 1 250ML.BAG IV SCH ×2 (16:30→17:05)
--- NOTE | 2020-11-28 16:58 | XR ---
EXAMINATION TYPE: XR chest 1V portable DATE OF EXAM: 11/28/2020 COMPARISON: 11/27/2020 INDICATION: Short of breath TECHNIQUE: Single frontal view of the chest is obtained. FINDINGS: The heart size is normal. The pulmonary vasculature is normal. There is subtle diffuse increased lung markings. A focal consolidation is not identified. IMPRESSION: 1. Minimal diffuse increased infiltrate may be alveolar in nature. Correlate for atypical pulmonary e jose eduardo. Infectious etiology including atypical pneumonia should be considered.
[2020-11-28 17:24] LABS: Basophils % (A) 0 %; Eosinophils # (A) 0.1 k/uL (0-0.7); Eosinophils % (A) 1 %; HCT 40.7 % (34.0-46.0); HGB 14.1 gm/dL (11.4-16.0); Lymphocytes # (A) 2.4 k/uL (1.0-4.8); Lymphocytes % (A) 21 %; MCH 28.8 pg (25.0-35.0); MCHC 34.8 g/dL (31.0-37.0); MCV 82.9 fL (80.0-100.0); Mean Platelet Volume 6.8; Monocytes # (A) 0.3 k/uL (0-1.0); Monocytes % (A) 3 %; Neutrophils # (A) 8.7 k/uL (1.3-7.7); Neutrophils % (A) 75 %; Platelet Count 235 k/uL (150-450); RBC 4.91 m/uL (3.80-5.40); WBC 11.7 k/uL (3.8-10.6)
[2020-11-28 17:56] LABS: African American GFR (CKD) >90 (>60 ml/min/1.73 sqM); Anion Gap 12 mmol/L; Blood Urea Nitrogen 12 mg/dL (7-17); Calcium 8.7 mg/dL (8.4-10.2); Carbon Dioxide 23 mmol/L (22-30); Chloride 102 mmol/L (98-107); Glucose 239 mg/dL (74-99); Non-African American GFR(CKD) >90 (>60 ml/min/1.73 sqM); Potassium 3.4 mmol/L (3.5-5.1); Sodium 137 mmol/L (137-145)
--- NOTE | 2020-11-28 18:00 | ECHOF ---
Referral Reason:short of breath, ateam MEASUREMENTS -------- HEIGHT: 152.4 cm WEIGHT: 84.8 kg BP: 155/32 RAP: 15.00 mmHg RVSP: 40.88 mmHg FINDINGS -------- Overall left ventricular systolic function is severely impaired with, an EF between 20 - 25 %. Mid inferoseptal LV wall motion is hypokinetic. Apical anterior LV wall motion is akinetic. Apical lateral LV wall motion is akinetic. Apical inferior LV wall motion is akinetic. Apical septum L V wall motion is akinetic. 5.0mg of Lumason was utilized for enhancement of images Mild tricuspid regurgitation present. Right ventricular systolic pressure is normal at < 35 mmHg. There is no pericardial effusion. CONCLUSIONS -------- 1. Overall left ventricular systolic function is severely impaired with, an EF between 20 - 25 %. 2. Mid inferoseptal LV wall motion is hypokinetic. 3. Apical anterior LV wall motion is akinetic. 4. Apical lateral LV wall motion is akinetic. 5. Apical inferior LV wall motion is akinetic. 6. Apical septum LV wall motion is akinetic. 7. 5.0mg of Lumason was utilized for enhancement of images 8. Mild tricuspid regurgitation present. 9. There is no pericardial effusion. COMPRESSOR ASSEMBLER: Lida Serrano RDCS
[2020-11-28] MEDS ORDERED: Potassium Replacement Protocol 1 EACH MISC MISCELLANE PRN (18:38)
[2020-11-28] MEDS: POTASSIUM CHLORIDE ER 20 MEQ TAB.ER PO SCH ×2 (19:00→20:40)
--- NOTE | 2020-11-28 19:35 | P.EN ---
A- team: Indication: shortness of breath Patient underwent stenting to the LAD for non-STEMI this afternoon. She had sudden onset shortness of breath, diaphoresis, and agitation. Patient seen and examined at bedside. She was having some recurrent chest pain which has since resolved. She is unable to sit still she feels she cannot breathe. She denies any lightheadedness or dizziness, she is having significant diaphoresis. She is feeling anxious and is unable to sit still. Vital signs reviewed General: non toxic, appears at stated age diaphoretic, moderate distress, obese Derm: warm, dry Head: atraumatic, normocephalic, symmetric Eyes: EOMI, no lid lag, anicteric sclera Mouth: no lip lesion, mucus membranes moist Cardiovascular: S1S2 reg, no murmur, positive posterior tibial pulse bilateral, Lungs: Crackles bilateral, no rhonchi, no rales , + accessory muscle use, +3 word conversational dyspnea Abdominal: soft, nontender to palpation, no guarding, no appreciable organomegaly Ext: no gross muscle atrophy, no edema, no contractures Neuro: CN II-XI grossly intact, no focal neuro deficits Psych: Alert, oriented, [anxious, diaphoretic Assessment/Plan: Hypertensive emergency with blood pressure 203/164 Flash pulmonary edema Non-STEMI with recent stenting to the LAD - Nitro drip ordered -EKG attempted multiple times, appears on bedrest EKG attempt that there is correction of prior T-wave inversion -Stat chest x-ray ordered by myself with possible atypical pulmonary edema, this was obtained after patient was placed on BiPAP settings with 12/5 and 50% -Lasix 40 mg IV push 1 -patient was placed on BiPAP 12/5 at 50% Notified: Discussed with Dr. Jack, initiate nitro drip, transferred to the ICU-and stat echo, Dr. Arnett was contacted by the ICU nurse and was in agreement with transfer, floor nursing notified [facility] A Total of 42 minutes of critical care time was spent on the complex care of this patient.
[2020-11-28] MEDS: ATORVASTATIN 80 MG TAB PO SCH (20:40)
[2020-11-29 04:59] LABS: HCT 38.2 % (34.0-46.0); MCH 28.2 pg (25.0-35.0); MCHC 34.2 g/dL (31.0-37.0); MCV 82.6 fL (80.0-100.0); Mean Platelet Volume 6.8; Platelet Count 220 k/uL (150-450); RBC 4.62 m/uL (3.80-5.40); RDW 13.3 % (11.5-15.5); WBC 12.7 k/uL (3.8-10.6)
[2020-11-29 05:13] LABS: African American GFR (CKD) >90 (>60 ml/min/1.73 sqM); Anion Gap 5 mmol/L; Blood Urea Nitrogen 13 mg/dL (7-17); Calcium 9.4 mg/dL (8.4-10.2); Carbon Dioxide 28 mmol/L (22-30); Chloride 106 mmol/L (98-107); Glucose 105 mg/dL (74-99); Non-African American GFR(CKD) >90 (>60 ml/min/1.73 sqM); Sodium 139 mmol/L (137-145)
[2020-11-29] MEDS ORDERED: HEPARIN SODIUM,PORCINE 2,500 UNIT in SODIUM CHLORIDE 0.9% 250 ML IRRIGATION PRN (07:00)
[2020-11-29] MEDS ORDERED: HEPARIN SODIUM,PORCINE 10,000 UNIT in SODIUM CHLORIDE 0.9% 1,000 ML IRRIGATION PRN (07:00)
[2020-11-29] MEDS: ASPIRIN 81 MG PO SCH (09:10)
[2020-11-29] MEDS: TICAGRELOR 90 MG TAB PO SCH ×2 (09:11→20:31)
[2020-11-29] MEDS: FUROSEMIDE 40 MG TAB PO SCH (09:11)
[2020-11-29] MEDS: carvediloL 3.125 MG TAB PO SCH ×2 (09:12→17:36)
[2020-11-29] MEDS: lisinopriL 5 MG TAB PO SCH (09:12)
--- NOTE | 2020-11-29 10:30 | P.PN ---
Subjective Progress Note Date: 11/29/20 HISTORY OF PRESENT ILLNESS: This is a 55-year-old female with a past medical history significant for hyperlipidemia and family history of premature coronary artery disease. Patient does not follow with a lead maintenance technician. We have been asked to see the patient in consultation for chest pain. Patient examined at the bedside. Patient states she began having a burning sensation in her chest on Thursday when she was at a graduation democrat. She states the pain lasted for a few hours and then went away. She states she has been having intermittent chest pain since that time. She states that she is short of breath when she has this and it is worse with exertion. She also reports pain going down both of her arms to her elbows. She states the pain is a burning sensation and also a pressure in the middle of her chest. She reports feeling diaphoretic. She also reports nausea without episodes of vomiting. She denies dizziness or lightheadedness. At the time of examination, the patient appears to be no acute distress and is resting comfortably. She currently denies chest pain or pressure. Patient states she is a nonsmoker. She denies alcohol use. She states that her dad had a heart attack before the age of 60 but does not know exactly what age he was. EKG reveals sinus mechanism with T-wave inversions in anterolateral leads Chest xray negative for acute process Laboratory data: WBC 12.3. Hemoglobin 14.9. Platelet count 217. Sodium 140. Potassium 4.1. BUN 16. Creatinine 0.72. Magnesium 1.9. Troponin 1.280. 2.370. 2.260. Current home cardiac medications include none 11/29/2020 Patient is s/p cardiac cath with Dr. Gr revealing critical stenosis of proximal LAD, mild diffuse intimal disease in the right coronary artery, and mo derate significant disease in the distal left circumflex. Patient underwent PCI to the LAD. Patient developed shortness of breath and pulmonary edema post procedure. She was placed on BiPAP and given Lasix IV 1 dose with significant improvement. This morning the patient is on room air with oxygen saturations greater than 92%. She denies any shortness of breath. She states she has been up ambulating with out any chest pain or difficulty breathing. Echocardiogram completed revealed ejection fraction 20-25%, mid inferior septal, apical anterior, apical lateral, apical inferior, apical septum LV wall akinesis, mild and tricuspid regurgitation. Vital signs are stable this morning. PHYSICAL EXAM: VITAL SIGNS: Reviewed. GENERAL: Well-developed in no acute distress. HEENT: Head is normocephalic. Pupils are equal, round. Sclerae anicteric. Mucous membranes of the mouth are moist. Neck supple. No JVD or thyromegaly LUNGS: Respirations even and unlabored. Lungs essentially clear to auscultation bilaterally. HEART: Regular rate and rhythm. S1 and S2 heard. ABDOMEN: Soft. Nondistended. Nontender. EXTREMITIES: Normal range of motion. No clubbing or cyanosis. Peripheral pulses intact. No lower extremity edema. Right radial cath site with pulse present NEUROLOGIC: Awake and alert. Oriented x 3. ASSESSMENT: Non-STEMI, status post PCI to LAD Pulmonary edema Ischemic cardiomyopathy, ejection fraction 20-25% Hyperlipidemia Family history of premature coronary artery disease PLAN: Continue aspirin 81 mg daily, atorvastatin 80 mg daily, lisinopril 5 mg daily, Brilinta 90mg BID Add lasix 40mg PO daily Discontinue metoprolol. Begin carvedilol 3.125 mg twice a day. Will increase as tolerated Patient will require a LifeVest at the time of discharge due to severe ischemic cardiomyopathy to prevent sudden cardiac Further recommendations pending patient's course Nurse practitioner note has been reviewed by physician. Signing provider agrees with the documented findings, assessment, and plan of care. Objective - Vital Signs Vital signs: Vital Signs Temp 98.5 F 11/29/20 08:00 Pulse 80 11/29/20 10:00 Resp 16 11/29/20 10:00 BP 125/71 11/29/20 10:00 Pulse Ox 94 L 11/29/20 09:00 Intake & Output 11/28/20 11/29/20 11/29/20 18:59 06:59 18:59 Intake Total 359.579 40 Output Total 1300 2035 100 Balance -940.421 Weight 85.4 kg Intake: IV 200 40 .9 40 Intake, IV Titration 159.579 Amount Heparin Sod,Pork in 0.45% 159.579 NaCl 25,000 unit In 0.45 % NaCl 1 250ml.bag @ 11.6 UNITS/KG/HR 9.945 mls/hr IV .Q24H [facility] Rx#: [id number] Oral 0 Output: Urine 1300 2035 100 Other: Voiding Method Indwelling Catheter Toilet # Voids 1 - Labs CBC & Chem 7: 11/29/20 04:51 11/29/20 04:51 Labs: Abnormal Lab Results - Last 24 Hours (Table) 11/28/20 11/28/20 11/28/20 Range/Units 04:32 17:21 17:21 WBC 11.7 H (3.8-10.6) k/uL Neutrophils # 8.7 H (1.3-7.7) k/uL Potassium 3.4 L (3.5-5.1) mmol/L Glucose 239 H (74-99) mg/dL Triglycerides 199.0 H (0.0-149.0) mg/dL HDL Cholesterol 28.0 L (40.0-60.0) mg/dL 11/29/20 11/29/20 Range/Units 04:51 04:51 WBC 12.7 H (3.8-10.6) k/uL Neutrophils # (1.3-7.7) k/uL Potassium (3.5-5.1) mmol/L Glucose 105 H (74-99) mg/dL Triglycerides (0.0-149.0) mg/dL HDL Cholesterol (40.0-60.0) mg/dL
--- NOTE | 2020-11-29 10:55 | P.PN ---
Progress Note - Text Impression Severe LV dysfunction with anterior septal apical and inferior wall motion telemetry Stenting to the LAD Acute pulmonary edema yesterday Elevated LVEDP at cardiac cath yesterday prior to the pulmonary edema This is a patient at high risk for ventricular fibrillation given her ischemic cardio myopathy and heart failure Suggest LifeVest for 4 months and maximize cardiac medications and heart failure medications Reassessment for need for internal defibrillator after 3-4 months
--- NOTE | 2020-11-29 10:58 | P.CNPUL ---
History of Present Illness Consult date: 11/29/20 Requesting physician: Margot Bishop Reason for consult: dyspnea, hypoxemia, abnormal CXR/CT Chief complaint: Shortness of breath. History of present illness: Pulmonary consult dated 11/29/2020. 55-year-old female with a history of Hodgkin's lymphoma, stage IV, coronary artery disease, hyperlipidemia, and ongoing tobacco use, presented to the emergency department on November 27. She complained of chest pain when she arrived in the emergency department. The patient had been having chest pain for a couple days prior to admission. It was intermittent in nature. It makes her short of breath and radiates down both arms. She also had some nausea with vomiting. Currently, the patient was chest free in the emergency department. The patient was admitted with a diagnosis of non-ST segment elevation myocardial infarction. She went to the catheterization laboratory on November 28, and had a stent placed to the LAD. It was done by Dr. Gr. Afterwards, yesterday, the patient developed some significant shortness of breath and diaphoresis. She was hypertensive. The patient was transferred to the ICU. The patient was placed on BiPAP and IV nitroglycerin. Currently, the patient's doing much better. She's on room air. She's getting no IV fluids. Her chest x-ray initially showed evidence of fluid overload. White count 12.7, hemoglobin 13, hematocrit 38.2, and platelet count 320,000. ET was 22.6. Sodium potassium chloride CO2 anion gap E1 and creatinine are all normal. Troponins are 2.370 and 2.260. N- terminal proBNP yesterday was 1790. Chest x-ray yesterday showed some mild cardiomegaly, and some increasing interstitial edema. Review of Systems REVIEW OF SYSTEMS: CONSTITUTIONAL: Diaphoresis. NEUROLOGIC: [ Negative.] HEENT: [ Negative.] CARDIAC: [Negative.] PULMONARY: Shortness of breath. GI: [Negative.] : [Negative.] RHEUMATOLOGIC: [ Negative.] IMMUNOLOGIC: [ Negative.] ENDOCRINE: [Negative. ] DERMATOLOGIC: [Negative.] Past Medical History Past Medical History: Cancer Additional Past Medical History / Comment(s): hodgkins lymphoma, migraines History of Any Multi-Drug Resistant Organisms: None Reported Past Surgical History: Section, Hysterectomy, Orthopedic Surgery, Tubal Ligation Additional Past Surgical History / Comment(s): X2, BONE MARROW 12/28/12, portacath insertion insertion and removal. Past Anesthesia/Blood Transfusion Reactions: No Reported Reaction Past Psychological History: No Psychological Hx Reported Smoking Status: Former smoker Past Alcohol Use History: None Reported Past Drug Use History: None Reported - Past Family History Mother Family Medical History: No Reported History Medications and Allergies Home Medications Medication Instructions Recorded Confirmed Type Aspirin 81 mg PO ONCE 11/27/20 11/27/20 History Ibuprofen [Motrin] 800 mg PO Q8H PRN 11/27/20 11/27/20 History Ticagrelor [Brilinta] 90 mg PO BID #180 tab 11/29/20 Rx Allergies Allergy/AdvReac Type Severity Reaction Status Date / Time morphine AdvReac Unknown Nausea & Verified 11/27/20 13:58 Vomiting Physical Exam Osteopathic Statement: *. No significant issues noted on an osteopathic structural exam other than those noted in the History and Physical/Consult. Vitals: Vital Signs Temp Pulse Pulse Pulse Resp BP BP 11/29/20 10:00 80 16 125/71 11/29/20 09:00 79 3 L 125/58 11/29/20 08:00 98.5 F 92 15 129/72 11/29/20 07:00 73 16 133/69 11/29/20 06:00 70 20 121/68 11/29/20 05:00 75 16 124/62 11/29/20 04:00 97.7 F 70 18 119/72 11/29/20 03:00 74 20 126/71 11/29/20 02:00 71 20 119/75 11/29/20 01:00 80 18 132/84 11/29/20 00:00 98.2 F 72 18 124/73 11/28/20 23:30 74 16 128/72 11/28/20 23:00 71 20 130/73 11/28/20 22:30 92 12 131/67 11/28/20 22:00 79 18 127/78 11/28/20 21:30 76 18 133/70 11/28/20 21:00 82 16 135/77 11/28/20 20:54 11/28/20 20:30 89 18 142/74 11/28/20 20:00 97.8 F 80 20 125/72 11/28/20 19:30 80 16 129/69 11/28/20 19:00 84 0 L 114/65 11/28/20 18:30 80 13 105/59 11/28/20 18:00 98 36 H 98/37 11/28/20 17:30 105 H 39 H 99/54 11/28/20 17:00 105 H 41 H 163/97 11/28/20 15:15 84 16 156/92 11/28/20 14:50 16 11/28/20 14:45 80 16 145/74 11/28/20 14:30 83 143/73 11/28/20 14:15 82 16 152/87 11/28/20 14:00 98.7 F 97 16 131/69 11/28/20 11:10 83 16 151/83 Pulse Ox 11/29/20 10:00 11/29/20 09:00 94 L 11/29/20 08:00 94 L 11/29/20 07:00 93 L 11/29/20 06:00 96 11/29/20 05:00 94 L 11/29/20 04:00 92 L 11/29/20 03:00 93 L 11/29/20 02:00 93 L 11/29/20 01:00 95 11/29/20 00:00 94 L 11/28/20 23:30 93 L 11/28/20 23:00 93 L 11/28/20 22:30 92 L 11/28/20 22:00 92 L 11/28/20 21:30 94 L 11/28/20 21:00 94 L 11/28/20 20:54 95 11/28/20 20:30 94 L 11/28/20 20:00 91 L 11/28/20 19:30 90 L 11/28/20 19:00 98 11/28/20 18:30 99 11/28/20 18:00 99 11/28/20 17:30 98 11/28/20 17:00 98 11/28/20 15:15 96 11/28/20 14:50 96 11/28/20 14:45 89 L 11/28/20 14:30 11/28/20 14:15 92 L 11/28/20 14:00 94 L 11/28/20 11:10 95 Intake and Output 11/28/20 11/29/20 11/29/20 22:59 06:59 14:59 Intake Total 30 10 Output Total 2625 710 100 Balance -2595 -700 -100 Intake: IV 30 10 .9 30 10 Output: Urine 2625 710 100 Other: Voiding Method Indwelling Catheter Indwelling Catheter Toilet Weight 85.4 kg No acute distress, oriented 3. Room air saturation is 94%. HEENT examination is grossly unremarkable. Neck supple. Full range of motion. No adenopathy thyromegaly or neck vein distention. Cardiovascular examination reveals regular rhythm rate. S1-S2 normal. No S3 or S4. No discernible murmur noted. Heart sounds are distant, and heart rate is 80 bpm. Lungs reveal mostly clear breath sounds. A few scattered crackles are noted. No wheezes or rhonchi. Breath sounds are equal bilaterally. Abdomen soft bowel sounds are heard. No masses or tenderness. Extremities are intact. No cyanosis clubbing or edema. Skin is without rash or lesion. Neurologic examination is brief but nonfocal. Results - Laboratory Findings CBC and BMP: 11/29/20 04:51 11/29/20 04:51 PT/INR, D-dimer PT 10.2 sec (9.0-12.0) 11/27/20 13:29 INR 0.9 (<1.2) 11/27/20 13:29 Abnormal lab findings: Abnormal Labs 11/27/20 11/27/20 11/27/20 13:29 13:29 13:29 WBC 12.3 H Neutrophils # 8.3 H APTT Potassium Glucose 152 H AST 51 H Troponin I 1.280 H* Triglycerides HDL Cholesterol 11/27/20 11/27/20 11/27/20 18:41 21:29 21:29 WBC Neutrophils # APTT 30.8 H Potassium Glucose AST Troponin I 2.370 H* 2.260 H* Triglycerides HDL Cholesterol 11/28/20 11/28/20 11/28/20 04:32 04:32 17: WBC 11.7 H Neutrophils # 8.7 H APTT 54.5 H Potassium Glucose AST Troponin I Triglycerides 199.0 H HDL Cholesterol 28.0 L 11/28/20 11/29/20 11/29/20 17:21 04:51 04:51 WBC 12.7 H Neutrophils # APTT Potassium 3.4 L Glucose 239 H 105 H AST Troponin I Triglycerides HDL Cholesterol - Diagnostic Findings Chest x-ray: image reviewed Assessment and Plan Assessment: Non-ST segment elevation myocardial infarction, status post stent placement to the LAD, on 11/28/2020. Postprocedure acute pulmonary edema, requiring diuretics, and BiPAP therapy, as well as IV nitroglycerin, and transfer to the intensive care unit. Currently, the patient's doing much better. History of stage IV Hodgkin's lymphoma. History of CAD. History of hyperlipidemia. History of ongoing tobacco use with nicotine addiction. Plan: Plan dated 11/29/2020. Currently, the patient's doing much better. She's on room air. She responded very nicely to IV nitroglycerin, BiPAP therapy, and IV Lasix. From my perspective, the patient could be discharged out of the intensive care unit no back to third floor. Additional recommendations and suggestions are forthcoming. We well continue to follow the patient and make recommendations where appropriate. Prognosis is considered to be very good. Time with Patient: Greater than 30
[2020-11-29 14:13] VITALS: BMI 36.7
[2020-11-29] MEDS ORDERED: carvediloL 3.125 MG TAB PO SCH (17:30)
[2020-11-29] MEDS: ATORVASTATIN 80 MG TAB PO SCH (20:31)
[2020-11-30] MEDS: carvediloL 3.125 MG TAB PO SCH ×2 (06:40→17:57)
--- NOTE | 2020-11-30 07:03 | ECHOF ---
Referral Reason:LV function, NSTEMI ,chest pain MEASUREMENTS -------- HEIGHT: 152.4 cm WEIGHT: 84.8 kg BP: 174/88 RVIDd: 3.7 cm (< 3.3) IVSd: 1.5 cm (0.6 - 1.1) LVIDd: 4.4 cm (3.9 - 5.3) LVPWd: 1.4 cm (0.6 - 1.1) IVSs: 1.5 cm LVIDs: 3.5 cm LVPWs: 1.5 cm LAESV Index (A-L): 26.45 ml/m Ao Diam: 2.9 cm (2.0 - 3.7) AV Cusp: 1.9 cm (1.5 - 2.6) LA Diam: 3.9 cm (2.7 - 3.8) MV EXCURSION: 16.659 mm (> 18.000) MV EF SLOPE: 84 mm/s (70 - 150) EPSS: 1.0 cm MV E Joey: 1.27 m/s MV DecT: 141 ms MV A Joey: 0.94 m/s MV E/A Ratio: 1.35 RAP: 5.00 mmHg RVSP: 38.81 mmHg FINDINGS -------- Sinus rhythm. This was a technically difficult study with suboptimal views. The left ventricular size is normal. There is moderate concentric left ventricular hypertrophy. O verall left ventricular systolic function is moderate-severely impaired with, an EF between 30 - 35 % . Possible Takotsubo. Mid anteroseptal LV wall motion is hypokinetic. Apical anterior LV wall motion is hypokinetic. Apical lateral LV wall motion is hypokinetic. Apical inferior LV wall mo tion is hypokinetic. Apical septum LV wall motion is hypokinetic. The right ventricle is mildly enlarged. Normal LA size by volume 22+/-6 ml/m2. The right atrial size is normal. Lumason used Interatrial and interventricular septum intact. There is no evidence of aortic regurgitation. There is no evidence of aortic stenosis. Mild mitral regurgitation is present. Mild tricuspid regurgitation present. There is no evidence of pulmonary hypertension. The right v entricular systolic pressure, as measured by Doppler, is 38.81mmHg. There is no pulmonic regurgitation present. The aortic root size is normal. IVC Not well visulized. There is no pericardial effusion. CONCLUSIONS -------- 1. The left ventricular size is normal. 2. There is moderate concentric left ventricular hypertrophy. 3. Overall left ventricular systolic function is moderate-severely impaired with, an EF between 30 - 35 %. 4. Possible Takotsubo. 5. Mid anteroseptal LV wall motion is hypokinetic. 6. Apical anterior LV wall motion is hypokinetic. 7. Apical lateral LV wall motion is hypokinetic. 8. Apical inferior LV wall motion is hypokinetic. 9. Apical septum LV wall motion is hypokinetic. 10. The right ventricle is mildly enlarged. 11. Mild mitral regurgitation is present. 12. Mild tricuspid regurgitation present. INTEGRATED CIRCUIT LAYOUT DESIGNER: Alejandrina Wong RDCS
[2020-11-30] MEDS: ASPIRIN 81 MG PO SCH (09:44)
[2020-11-30] MEDS: FUROSEMIDE 40 MG TAB PO SCH (09:44)
[2020-11-30] MEDS: TICAGRELOR 90 MG TAB PO SCH ×2 (09:44→20:29)
[2020-11-30] MEDS: lisinopriL 5 MG TAB PO SCH (09:44)
--- NOTE | 2020-11-30 10:19 | P.PN ---
Subjective Progress Note Date: 11/28/20 Principal diagnosis: Chest pain Acute non-ST elevated [place] Patient is 55-year-old female with a known history of Hodgkin's lymphoma, migraine headaches and previous history of smoking presents to ER with complaints of chest pain. Patient states that she has been having intermittent chest pains for the past 4 days., Since Thursday afternoon. She states that pain started with heartburn in the upper abdomen and across the anterior chest wall and radiating down the arms and elbows. Initially she developed pain when she was sitting outside at a graduation democrat and was warm outside. She felt dizzy and diaphoretic. She has been having on and off chest pains since Thursday and last up to 4 hours. She went to the grocery shop and felt very exhausted and diaphoretic after w alking in the store. Due to worsening symptoms patient presented to ER. No fever no chills. No cough or sputum production. No leg swelling. Chest x-ray showed no acute pulmonary process EKG showed sinus tachycardia with T wave inversions in the lateral leads. Laboratory test showed troponin I.28, 2.370 WBC12.3 hemoglobin 14.9 and platelets 217 Objective - Vital Signs Vital signs: Vital Signs Temp 97.8 F 11/28/20 20:00 Pulse 92 11/28/20 22:30 Resp 12 11/28/20 22:30 BP 131/67 11/28/20 22:30 Pulse Ox 92 L 11/28/20 22:30 Intake & Output 11/28/20 11/28/20 11/29/20 06:59 18:59 06:59 Intake Total 68.455 359.579 30 Output Total 1300 1325 Balance 68.455 -940.421 -1295 Weight 84.9 kg Intake: IV 200 30 .9 30 Intake, IV Titration 68.455 159.579 Amount Heparin Sod,Pork in 0.45% 68.455 159.579 NaCl 25,000 unit In 0.45 % NaCl 1 250ml.bag @ 11.6 UNITS/KG/HR 9.945 mls/hr IV .Q24H [facility] Rx#: [id number] Oral 0 Output: Urine 1300 1325 Other: Voiding Method Toilet Indwelling Catheter # Voids 1 1 - Exam PHYSICAL EXAMINATION: Patient is lying in the bed comfortably, no acute distress, awake alert and oriented.. HEENT: Normocephalic. Neck is supple. Pupils reactive. Nostrils clear. Oral cavity is moist. Neck reveals no JVD, carotid bruits, or thyromegaly. CHEST EXAMINATION: Trachea is central. Symmetrical expansion. Lung carrera clear to auscultation and percussion. CARDIAC: Normal S1, S2 with no gallops. No murmurs ABDOMEN: Soft. Bowel sounds normal. No organomegaly. No abdominal bruits. Extremities: reveal no edema. No clubbing or cyanosis Neurologically awake, alert, oriented x3 with well-coordinated movements. No focal deficits noted Skin: No rash or skin lesions. Psychiatric: Coperative. Nonsuicidal Musculoskeletal: No joint swelling or deformity. - Labs CBC & Chem 7: 11/29/20 04:51 11/29/20 04:51 Labs: Abnormal Lab Results - Last 24 Hours (Table) 11/28/20 11/28/20 11/28/20 Range/Units 04:32 04:32 17:21 WBC 11.7 H (3.8-10.6) k/uL Neutrophils # 8.7 H (1.3-7.7) k/uL APTT 54.5 H (22.0-30.0) sec Potassium (3.5-5.1) mmol/L Glucose (74-99) mg/dL Triglycerides 199.0 H (0.0-149.0) mg/dL HDL Cholesterol 28.0 L (40.0-60.0) mg/dL 11/28/20 Range/Units 17:21 WBC (3.8-10.6) k/uL Neutrophils # (1.3-7.7) k/uL APTT (22.0-30.0) sec Potassium 3.4 L (3.5-5.1) mmol/L Glucose 239 H (74-99) mg/dL Triglycerides (0.0-149.0) mg/dL HDL Cholesterol (40.0-60.0) mg/dL Assessment and Plan Assessment: Acute non-ST elevated [place] Chest pain and exertional dyspnea Hypertension uncontrolled on admission Hyperlipidemia History of Hodgkin's lymphoma History of migraine headaches Previous history of smoking DVT prophylaxis. Plan: Patient will be continued on telemetry. Continue with heparin drip. Continue with aspirin and statins. Cardiology has seen the patient and is scheduled for current Sedation today. Continue to follow closely.
--- NOTE | 2020-11-30 10:25 | P.PN ---
Subjective Progress Note Date: 11/29/20 Principal diagnosis: Chest pain Acute non-ST elevated [place] Patient is 55-year-old female with a known history of Hodgkin's lymphoma, migraine headaches and previous history of smoking presents to ER with complaints of chest pain. Patient states that she has been having intermittent chest pains for the past 4 days., Since Thursday afternoon. She states that pain started with heartburn in the upper abdomen and across the anterior chest wall and radiating down the arms and elbows. Initially she developed pain when she was sitting outside at a graduation green party and was warm outside. She felt dizzy and diaphoretic. She has been having on and off chest pains since Thursday and last up to 4 hours. She went to the grocery shop and felt very exhausted and diaphoretic after w alking in the store. Due to worsening symptoms patient presented to ER. No fever no chills. No cough or sputum production. No leg swelling. Chest x-ray showed no acute pulmonary process EKG showed sinus tachycardia with T wave inversions in the lateral leads. Laboratory test showed troponin I.28, 2.370 WBC12.3 hemoglobin 14.9 and platelets 217 11/29/2020 Patient underwent stenting to LAD yesterday afternoon. She developed sudden onset of shortness of breath and diaphoretic and agitated. Rapid response team was called. Patient was given a dose of Lasix 40 mg 1 for possible pulmonary edema. Patient was placed on BiPAP and was transferred to MICU. Currently patient denied any chest pain or shortness of breath. Saturating well on room air. No headache or dizziness or lightheadedness. Chest x-ray showed minimal diffuse increased infiltrate may be Alveolar in nature. Correlate for atypical pulmonary edema. Patient is being continued on Lasix 40 mg daily. Cardiology and pulmonary is on board. Current medications reviewed. Objective - Vital Signs Vital signs: Vital Signs Temp 97.8 F 11/29/20 20:00 Pulse 73 11/29/20 20:00 Resp 18 11/29/20 20:00 BP 120/64 11/29/20 20:00 Pulse Ox 95 11/29/20 20:00 Intake & Output 11/29/20 11/29/20 11/30/20 06:59 18:59 06:59 Intake Total 40 118 240 Output Total 9432 1250 350 Balance -1994 -1132 -110 Weight 85.4 kg 85.4 kg Intake: IV 40 .9 40 Oral 118 240 Output: Urine 2035 1250 350 Other: Voiding Method Indwelling Catheter Toilet Toilet # Voids 1 1 - Exam PHYSICAL EXAMINATION: Patient is lying in the bed comfortably, no acute distress, awake alert and oriented.. HEENT: Normocephalic. Neck is supple. Pupils reactive. Nostrils clear. Oral cavity is moist. Neck reveals no JVD, carotid bruits, or thyromegaly. CHEST EXAMINATION: Trachea is central. Symmetrical expansion. Bibasilar crackles. Lung carrera clear to auscultation and percussion. CARDIAC: Normal S1, S2 with no gallops. No murmurs ABDOMEN: Soft. Bowel sounds normal. No organomegaly. No abdominal bruits. Extremities: reveal no edema. No clubbing or cyanosis Neurologically awake, alert, oriented x3 with well-coordinated movements. No focal deficits noted Skin: No rash or skin lesions. Psychiatric: Coperative. Nonsuicidal Musculoskeletal: No joint swelling or deformity. - Labs CBC & Chem 7: 11/29/20 04:51 11/29/20 04:51 Labs: Abnormal Lab Results - Last 24 Hours (Table) 11/29/20 11/29/20 Range/Units 04:51 04:51 WBC 12.7 H (3.8-10.6) k/uL Glucose 105 H (74-99) mg/dL Assessment and Plan Assessment: Hypertensive emergency with flash pulmonary edema post catheterization. Acute non-ST elevated [place] status post stent placement to LAD. Ischemic cardiomyopathy with ejection fraction 20-25%. Chest pain and exertional dyspnea Hypertension uncontrolled on admission Hyperlipidemia History of Hodgkin's lymphoma History of migraine headaches Previous history of smoking DVT prophylaxis. Plan: Patient will be continued on telemetry. Status post cardiac catheterization stent placement. Added Lasix 40 mg daily due to pulmonary edema. Continue with aspirin, atorvastatin, lisinopril and Brilinta. Started on Coreg 3.125 mg twice daily. Patient will require LifeVest at the time of discharge due to severe ischemic cardiomyopathy. Cardiology and pulmonary is on board. Patient is currently being monitored in the MICU. Time with Patient: Greater than 30
--- NOTE | 2020-11-30 10:40 | P.PN ---
Subjective Patient is s/p cardiac cath with Dr. Gr revealing critical stenosis of proximal LAD, mild diffuse intimal disease in the right coronary artery, and moderate significant disease in the distal left circumflex. Patient underwent PCI to the LAD. Patient developed shortness of breath and pulmonary edema post procedure. She was placed on BiPAP and given Lasix IV 1 dose with significant improvement. This morning the patient is on room air with oxygen saturations greater than 92%. She denies any shortness of breath. She states she has been up ambulating with out any chest pain or difficulty breathing. Echocardiogram completed revealed ejection fraction 20-25%, mid inferior septal, apical anterior, apical lateral, apical inferior, apical septum LV wall akinesis, mild and tricuspid regurgitation. Vital signs are stable this morning. 11/30/2020 Pt seen sitting up in the chair in no acute distress. She denies chest pain, s hortness of breath, dizziness or palpitations. Blood pressure 106/59 heart rate 55. Telemetry tracings reviewed, she had a 3.6 second pause this morning while sleeping at 0545. No evidence of VT or significant arrhythmia. PHYSICAL EXAM: VITAL SIGNS: Reviewed. GENERAL: Well-developed in no acute distress. HEENT: Head is normocephalic. Pupils are equal, round. Sclerae anicteric. Mucous membranes of the mouth are moist. Neck supple. No JVD or thyromegaly LUNGS: Respirations even and unlabored. Lungs essentially clear to auscultation bilaterally. HEART: Regular rate and rhythm. S1 and S2 heard. EXTREMITIES: Normal range of motion. No clubbing or cyanosis. Peripheral p ulses intact. No lower extremity edema. Right radial cath site with pulse present NEUROLOGIC: Awake and alert. Oriented x 3. ASSESSMENT: Non-STEMI, status post PCI to LAD Pulmonary edema Sinus pause Ischemic cardiomyopathy, ejection fraction 20-25% Hyperlipidemia Family history of premature coronary artery disease PLAN: Continue aspirin 81 mg daily, atorvastatin 80 mg daily, lisinopril 5 mg daily, Brilinta 90mg BID and lasix. Life Vest in place. She has been educated appropriately. Ongoing telemetry monitoring for another 24 hours. Discussed with her the need for a sleep study for probably obstructive sleep apnea. She needs beta blockers for systolic heart failure, however she is having pauses. May consider other options for rate control. Further recommendations to follow based on clinical course. Nurse practitioner note has been reviewed by physician. Signing provider agrees with the documented findings, assessment, and plan of care. Objective - Vital Signs Vital signs: Vital Signs Temp 97.7 F 11/30/20 03:53 Pulse 55 L 11/30/20 03:53 Resp 16 11/30/20 03:53 BP 106/59 11/30/20 03:53 Pulse Ox 99 11/30/20 03:53 Intake & Output 11/29/20 11/30/20 11/30/20 18:59 06:59 18:59 Intake Total 118 480 240 Output Total 1250 750 Balance -1132 -270 240 Weight 85.4 kg Intake: Oral 118 480 240 Output: Urine 1250 750 Other: Voiding Method Toilet Toilet # Voids 1 1 - Labs CBC & Chem 7: 11/29/20 04:51 11/29/20 04:51
--- NOTE | 2020-11-30 15:59 | P.PN ---
Subjective Progress Note Date: 11/30/20 Principal diagnosis: Shortness of breath. Pulmonary consult dated 11/29/2020. 55-year-old female with a history of Hodgkin's lymphoma, stage IV, coronary artery disease, hyperlipidemia, and ongoing tobacco use, presented to the emergency department on November 27. She complained of chest pain when she arrived in the emergency department. The patient had been having chest pain for a couple days prior to admission. It was intermittent in nature. It makes her short of breath and radiates down both arms. She also had some nausea with vomiting. Currently, the patient was chest free in the emergency department. The patient was admitted with a diagnosis of non-ST segment elevation myocardial infarction. She went to the catheterization laboratory on November 28, and had a stent placed to the LAD. It was done by Dr. Gr. Afterwards, yesterday, the patient developed some significant shortness of breath and diaphoresis. She was hypertensive. The patient was transferred to the ICU. The patient was placed on BiPAP and IV nitroglycerin. Currently, the patient's doing much better. She's on room air. She's getting no IV fluids. Her chest x-ray initially showed evidence of fluid overload. White count 12.7, hemoglobin 13, hematocrit 38.2, and platelet count 320,000. ET was 22.6. Sodium potassium chloride CO2 anion gap E1 and creatinine are all normal. Troponins are 2.370 and 2.260. N- terminal proBNP yesterday was 1790. Chest x-ray yesterday showed some mild cardiomegaly, and some increasing interstitial edema. Progress note dated 11/30/2020. 55-year-old female with a history of Hodgkin some Pulmicort, stage IV, coronary artery disease, hyperlipidemia, and ongoing tobacco use, presented to the emergency department on November 27 with shortness of breath and chest pain. The patient ended up going to the catheterization laboratory on November 28, and had a stent placed to the LAD. Subsequent to that, she developed significant shortness of breath, with congestive heart failure/pulmonary edema. He was treated with IV nitroglycerin, oxygen, BiPAP, and diuretics. Currently, she is doing well. She is resting comfortably off of oxygen. She states that she probably will not be going home today. No labs from today as yet. No recent chest x-ray. Objective - Vital Signs Vital signs: Vital Signs Temp 97.7 F 11/30/20 03:53 Pulse 55 L 11/30/20 03:53 Resp 16 11/30/20 03:53 BP 106/59 11/30/20 03:53 Pulse Ox 99 11/30/20 03:53 Intake & Output 11/29/20 11/30/20 11/30/20 18:59 06:59 18:59 Intake Total 118 480 480 Output Total 1250 750 Balance -1132 -270 480 Weight 85.4 kg Intake: Oral 118 480 480 Output: Urine 1250 750 Other: Voiding Method Toilet Toilet # Voids 1 1 - Exam No acute distress, oriented 3. Room air saturation is 96%. HEENT examination is grossly unremarkable. Neck supple. Full range of motion. No adenopathy thyromegaly or neck vein distention. Cardiovascular examination reveals regular rhythm rate. S1-S2 normal. No S3 or S4. No discernible murmur noted. Heart sounds are distant, and heart rate is 55 bpm. Lungs reveal clear bilateral breath sounds. No wheezes. No rhonchi. No crackles. Breath sounds are equal bilaterally. Abdomen soft bowel sounds are heard. No masses or tenderness. Extremities are intact. No cyanosis clubbing or edema. Skin is without rash or lesion. Neurologic examination is brief but nonfocal. - Labs CBC & Chem 7: 11/29/20 04:51 11/29/20 04:51 Assessment and Plan Assessment: Non-ST segment elevation myocardial infarction, status post stent placement to the LAD, on 11/28/2020. Postprocedure acute pulmonary edema, requiring diuretics, and BiPAP therapy, as well as IV nitroglycerin, and transfer to the intensive care unit. Currently, the patient's doing much better. History of stage IV Hodgkin's lymphoma. History of CAD. Rule out obstructive sleep apnea syndrome. History of hyperlipidemia. History of ongoing tobacco use with nicotine addiction. Plan: Plan dated 11/29/2020. Currently, the patient's doing much better. She's on room air. She responded very nicely to IV nitroglycerin, BiPAP therapy, and IV Lasix. From my perspective, the patient could be discharged out of the intensive care unit no back to third floor. Additional recommendations and suggestions are forthcoming. We well continue to follow the patient and make recommendations where appropriate. Prognosis is considered to be very good. Plan dated 11/30/2020. Currently, the patient's doing much better. She does give us history that would suggest that she may have some underlying sleep apnea syndrome. She'll eventually need either a home sleep study, oriented outpatient sleep study. Currently, her respiratory status is completely normal. She's counseled about the importance of smoking cessation. Additional recommendations and suggestions are forthcoming. We will see the patient as needed. Time with Patient: Less than 30
[2020-11-30] MEDS: ATORVASTATIN 80 MG TAB PO SCH (20:29)
[2020-12-01 04:02] VITALS: RESP 16
[2020-12-01] MEDS: carvediloL 3.125 MG TAB PO SCH (06:47)
[2020-12-01 08:29] VITALS: TEMP 97.8
[2020-12-01] MEDS: ASPIRIN 81 MG PO SCH (08:32)
[2020-12-01] MEDS: TICAGRELOR 90 MG TAB PO SCH (08:32)
[2020-12-01] MEDS: lisinopriL 5 MG TAB PO SCH (08:32)
[2020-12-01] MEDS: FUROSEMIDE 40 MG TAB PO SCH (08:32)
[2020-12-01 12:51] VITALS: BP 116/57; PULSE 67
--- NOTE | 2020-12-01 13:27 | P.PN ---
Subjective Progress Note Date: 12/01/20 The patient was interviewed and examined lying comfortably in bed. She states she's been up ambulating around her room without issue. No dyspnea, orthopnea, palpitations, dizziness, or lightheadedness. No exertional chest pain or chest pressure. GENERAL: Well-appearing, well-nourished and in no acute distress. NECK: Supple without JVD or thyromegaly. LUNGS: Breath sounds clear to auscultation bilaterally. Respiration equal and unlabored. No wheezes, rales or rhonchi. HEART: Regular rate and rhythm without murmurs, rubs or gallops. S1 and S2 heard. EXTREMITIES: Normal range of motion, no edema. No clubbing or cyanosis. Peripheral pulses intact and strong. VITALS: Blood pressure 116/57, SpO2 95% on room air, respiratory rate 16, pulse rate 67, temperature 97.8F TELEMETRY: Sinus rhythm with heart rate in the 70's IMPRESSION: Non-STEMI, status post PCI to LAD Pulmonary edema Sinus pause Ischemic cardiomyopathy, ejection fraction 20-25% Hyperlipidemia Family history of premature coronary artery disease PLAN: Patient is cleared to be discharged from the cardiac standpoint Follow-up in office in 1-2 weeks The patient has been seen and evaluated. Plan of care has been reviewed and agreed upon by Dr Kirk. Objective - Vital Signs Vital signs: Vital Signs Temp 97.8 F 12/01/20 08:00 Pulse 67 12/01/20 12:00 Resp 16 12/01/20 12:00 BP 116/57 12/01/20 12:00 Pulse Ox 95 12/01/20 12:00 Intake & Output 11/30/20 12/01/20 12/01/20 18:59 06:59 18:59 Intake Total 720 240 720 Output Total 400 725 250 Balance 320 -485 470 Weight 82.2 kg Intake: Oral 720 240 720 Output: Urine 400 725 250 Other: Voiding Method Toilet Toilet # Voids 1 - Labs CBC & Chem 7: 11/29/20 04:51 11/29/20 04:51
--- NOTE | 2020-12-07 17:22 | P.PN ---
Subjective Progress Note Date: 11/30/20 Principal diagnosis: Chest pain Acute non-ST elevated [place] Patient is 55-year-old female with a known history of Hodgkin's lymphoma, migraine headaches and previous history of smoking presents to ER with complaints of chest pain. Patient states that she has been having intermittent chest pains for the past 4 days., Since Thursday afternoon. She states that pain started with heartburn in the upper abdomen and across the anterior chest wall and radiating down the arms and elbows. Initially she developed pain when she was sitting outside at a graduation democrat and was warm outside. She felt dizzy and diaphoretic. She has been having on and off chest pains since Thursday and last up to 4 hours. She went to the grocery shop and felt very exhausted and diaphoretic after w alking in the store. Due to worsening symptoms patient presented to ER. No fever no chills. No cough or sputum production. No leg swelling. Chest x-ray showed no acute pulmonary process EKG showed sinus tachycardia with T wave inversions in the lateral leads. Laboratory test showed troponin I.28, 2.370 WBC12.3 hemoglobin 14.9 and platelets 217 11/29/2020 Patient underwent stenting to LAD yesterday afternoon. She developed sudden onset of shortness of breath and diaphoretic and agitated. Rapid response team was called. Patient was given a dose of Lasix 40 mg 1 for possible pulmonary edema. Patient was placed on BiPAP and was transferred to MICU. Currently patient denied any chest pain or shortness of breath. Saturating well on room air. No headache or dizziness or lightheadedness. Chest x-ray showed minimal diffuse increased infiltrate may be Alveolar in nature. Correlate for atypical pulmonary edema. Patient is being continued on Lasix 40 mg daily. Cardiology and pulmonary is on board. 11/30/2020 Patient is currently sitting in the chair comfortably. No complaints of chest pain or shortness breath. Denied dizziness or lightheadedness. Blood pressure is stable. No evidence of arrhythmia. Did have a 3.6 second pause this morning at around 5:45 AM. Cardiology is following. 2-D echocardiogram showed ejection fraction 20-25 %, mild inferior septal apical anterior apical lateral, apical inferior, apical septum LV wall tenderness is, mild tricuspid regurgitation. Lipase is being arranged by cardiology. Current medications reviewed. Objective - Vital Signs Vital signs: Vital Signs Temp 97.7 F 11/30/20 03:53 Pulse 55 L 11/30/20 03:53 Resp 16 11/30/20 03:53 BP 106/59 11/30/20 03:53 Pulse Ox 99 11/30/20 03:53 Intake & Output 11/29/20 11/30/20 11/30/20 18:59 06:59 18:59 Intake Total 118 480 240 Output Total 1250 750 Balance -1132 -270 240 Weight 85.4 kg Intake: Oral 118 480 240 Output: Urine 1250 750 Other: Voiding Method Toilet Toilet # Voids 1 1 - Exam PHYSICAL EXAMINATION: Patient is lying in the bed comfortably, no acute distress, awake alert and oriented.. HEENT: Normocephalic. Neck is supple. Pupils reactive. Nostrils clear. Oral cavity is moist. Neck reveals no JVD, carotid bruits, or thyromegaly. CHEST EXAMINATION: Trachea is central. Symmetrical expansion. No wheezing or crackles.. Lung carrera clear to auscultation and percussion. CARDIAC: Normal S1, S2 with no gallops. No murmurs ABDOMEN: Soft. Bowel sounds normal. No organomegaly. No abdominal bruits. Extremities: reveal no edema. No clubbing or cyanosis Neurologically awake, alert, oriented x3 with well-coordinated movements. No focal deficits noted Skin: No rash or skin lesions. Psychiatric: Coperative. Nonsuicidal Musculoskeletal: No joint swelling or deformity. - Labs CBC & Chem 7: 11/29/20 04:51 11/29/20 04:51 Assessment and Plan Assessment: Hypertensive emergency with flash pulmonary edema post catheterization. Improved now. Acute non-ST elevated [place] status post stent placement to LAD. Ischemic cardiomyopathy with ejection fraction 20-25%. Chest pain and exertional dyspnea Hypertension uncontrolled on admission Hyperlipidemia History of Hodgkin's lymphoma History of migraine headaches Previous history of smoking DVT prophylaxis. Plan: Patient will be continued on telemetry. Status post cardiac catheterization stent placement. Added Lasix 40 mg daily due to pulmonary edema. Continue with aspirin, atorvastatin, lisinopril and Brilinta. Started on Coreg 3.125 mg twice daily. Patient will require LifeVest at the time of discharge due to severe ischemic cardiomyopathy. Cardiology and pulmonary is on board. Patient is currently being monitored in the MICU. Time with Patient: Greater than 30
--- NOTE | 2020-12-07 17:24 | P.DS ---
Providers Date of admission: 11/27/20 15:39 Expected date of discharge: 12/01/20 Attending physician: Margot Bishop Consults: 11/27/20 15:39 Consult Physician Urgent Consulting Provider: Christi Bates Consult Reason/Comments: Non-STEMI Do you want consulting provider notified?: Yes 11/28/20 13:53 Consult Physician Routine Consulting Provider: Cardiology Paulo Consult Reason/Comments: Post Interventional patient Do you want consulting provider notified?: Already Contacted 11/28/20 16:16 Consult Physician Urgent Consulting Provider: Sunil Arnett Consult Reason/Comments: ICU management Do you want consulting provider notified?: Already Contacted 11/28/20 16:17 Consult Physician Stat Consulting Provider: Sunil Arnett Consult Reason/Comments: icu management Do you want consulting provider notified?: Already Contacted Primary care physician: Josefa St Hospital Course: Discharge diagnosis Acute non-ST elevated [place] status post stent placement to LAD. Ischemic cardiomyopathy with ejection fraction 20-25%. Hypertensive emergency with flash pulmonary edema post catheterization. Improved now. Chest pain and exertional dyspnea on admission Hypertension uncontrolled on admission Hyperlipidemia History of Hodgkin's lymphoma History of migraine headaches Previous history of smoking DVT prophylaxis. Hospital course Patient is 55-year-old female with a known history of Hodgkin's lymphoma, migraine headaches and previous history of smoking presents to ER with complaints of chest pain. Patient states that she has been having intermittent chest pains for the past 4 days., Since Thursday. She states that pain started with heartburn in the upper abdomen and across the anterior chest wall and radiating down the arms and elbows. Initially she developed pain when she was sitting outside at a graduation libertarian and was warm outside. She felt dizzy and diaphoretic. She has been having on and off chest pains since and last up to 4 hours. She went to the grocery shop and felt very exhausted and diaphoretic after walking in the store. Due to worsening symptoms patient presented to ER. No fever no chills. No cough or sputum production. No leg swelling. Chest x-ray showed no acute pulmonary process EKG showed sinus tachycardia with T wave inversions in the lateral leads. Laboratory test showed troponin I.28, 2.370 WBC12.3 hemoglobin 14.9 and platelets 217 11/29/2020 Patient underwent stenting to LAD yesterday afternoon. She developed sudden onset of shortness of breath and diaphoretic and agitated. Rapid response team was called. Patient was given a dose of Lasix 40 mg 1 for possible pulmonary edema. Patient was placed on BiPAP and was transferred to MICU. Currently patient denied any chest pain or shortness of breath. Saturating well on room air. No headache or dizziness or lightheadedness. Chest x-ray showed minimal diffuse increased infiltrate may be Alveolar in nature. Correlate for atypical pulmonary edema. Patient is being continued on Lasix 40 mg daily. Cardiology and pulmonary is on board. 11/30/2020 Patient is currently sitting in the chair comfortably. No complaints of chest pain or shortness breath. Denied dizziness or lightheadedness. Blood pressure is stable. No evidence of arrhythmia. Did have a 3.6 second pause this morning at around 5:45 AM. Cardiology is following. 2-D echocardiogram showed ejection fraction 20-25 %, mild inferior septal apical anterior apical lateral, apical inferior, apical septum LV wall tenderness is, mild tricuspid regurgitation. Lipase is being arranged by cardiology. 12/01/2020 Patient is currently resting in the bed comfortably. No complaints of chest pain or shortness of breath. No other acute overnight issues. Patient is fitted with a LifeVest. Cleared from cardiology standpoint. This is medication reconciliation was done. Patient is stable to be discharged home. PHYSICAL EXAMINATION: Patient is lying in the bed comfortably, no acute distress, awake alert and oriented.. HEENT: Normocephalic. Neck is supple. Pupils reactive. Nostrils clear. Oral cavity is moist. Neck reveals no JVD, carotid bruits, or thyromegaly. CHEST EXAMINATION: Trachea is central. Symmetrical expansion. No wheezing or crackles.. Lung carrera clear to auscultation and percussion. CARDIAC: Normal S1, S2 with no gallops. No murmurs ABDOMEN: Soft. Bowel sounds normal. No organomegaly. No abdominal bruits. Extremities: reveal no edema. No clubbing or cyanosis Neurologically awake, alert, oriented x3 with well-coordinated movements. No focal deficits noted Skin: No rash or skin lesions. Psychiatric: Coperative. Nonsuicidal Musculoskeletal: No joint swelling or deformity. Vital signs: Vital Signs Temp 97.8 F 12/01/20 08:00 Pulse 67 12/01/20 12:00 Resp 16 12/01/20 12:00 BP 116/57 12/01/20 12:00 Pulse Ox 95 12/01/20 12:00 Intake & Output 11/30/20 12/01/20 12/01/20 18:59 06:59 18:59 Intake Total 720 240 720 Output Total 400 725 250 Balance 320 -485 470 Weight 82.2 kg Intake: Oral 720 240 720 Output: Urine 400 725 250 Other: Voiding Method Toilet Toilet # Voids 1 Patient Condition at Discharge: Stable Plan - Discharge Summary Discharge Rx Participant: Yes New Discharge Prescriptions: New Ticagrelor [Brilinta] 90 mg PO BID #180 tab Atorvastatin [Lipitor] 80 mg PO HS #30 tab Nitroglycerin Sl Tabs [Nitrostat] 0.4 mg SUBLINGUAL Q5M PRN #30 tab PRN Reason: Chest Pain lisinopriL [Zestril] 5 mg PO DAILY #30 tab carvediloL [Coreg] 3.125 mg PO BID-W/MEALS #60 tab Furosemide [Lasix] 40 mg PO DAILY #30 tab Continue Aspirin 81 mg PO ONCE Discontinued Ibuprofen [Motrin] 800 mg PO Q8H PRN PRN Reason: Pain Discharge Medication List Aspirin 81 mg PO ONCE 11/27/20 [History] Ticagrelor [Brilinta] 90 mg PO BID #180 tab 11/29/20 [Rx] Atorvastatin [Lipitor] 80 mg PO HS #30 tab 12/01/20 [Rx] Furosemide [Lasix] 40 mg PO DAILY #30 tab 12/01/20 [Rx] Nitroglycerin Sl Tabs [Nitrostat] 0.4 mg SUBLINGUAL Q5M PRN #30 tab 12/01/20 [Rx] carvediloL [Coreg] 3.125 mg PO BID-W/MEALS #60 tab 12/01/20 [Rx] lisinopriL [Zestril] 5 mg PO DAILY #30 tab 12/01/20 [Rx] Follow up Appointment(s)/Referral(s): Arden Kirk MD [STAFF PHYSICIAN] - [address] MD [Primary Care Provider] - 1-2 days Kyra York MD [STAFF PHYSICIAN] - 2 Weeks Patient Instructions/Handouts: Heart Attack (DC) Discharge Disposition: HOME SELF-CARE
== END 2020-12-01 16:19 | disposition home or self-care (01) | DRG 246 ==
LOC: EC 12:52 → 3SCARD 15:39 → 2SICU 11-28 16:34 → 3SCARD 11-29 15:56
PROVIDERS: ADMIT Internal Medicine; ATTEND Internal Medicine
PROC: 027034Z Dilation of Coronary Artery, One Artery with Drug-eluting Intraluminal Device, Percutaneous Approach (ICD-10-PCS; principal; 2020-11-27)
PROC: B2111ZZ Fluoroscopy of Multiple Coronary Arteries using Low Osmolar Contrast (ICD-10-PCS; 2020-11-27)
PROC: B2151ZZ Fluoroscopy of Left Heart using Low Osmolar Contrast (ICD-10-PCS; 2020-11-27)
PROC: 4A023N7 Measurement of Cardiac Sampling and Pressure, Left Heart, Percutaneous Approach (ICD-10-PCS; 2020-11-27)
PROC: B2151ZZ Fluoroscopy of Left Heart using Low Osmolar Contrast (ICD-10-PCS; 2020-11-27)
DX: I21.4 Non-ST elevation (NSTEMI) myocardial infarction (principal); J81.0 Acute pulmonary edema; I16.1 Hypertensive emergency; I25.10 Atherosclerotic heart disease of native coronary artery without angina pectoris; I25.2 Old myocardial infarction; I25.5 Ischemic cardiomyopathy; E78.5 Hyperlipidemia, unspecified; E78.00 Pure hypercholesterolemia, unspecified; I11.0 Hypertensive heart disease with heart failure; E66.9 Obesity, unspecified; Z79.02 Long term (current) use of antithrombotics/antiplatelets; Z79.899 Other long term (current) drug therapy; I50.9 Heart failure, unspecified; Z85.71 Personal history of Hodgkin lymphoma; Z87.891 Personal history of nicotine dependence; Z90.710 Acquired absence of both cervix and uterus
CPT/HCPCS: 36415; 71045; 71046; 80048; 80053; 80061; 83735; 83880; 84484; 85025; 85027; 85610; 85730; 87635; 93005; 93306; 93458; 94660; 94760; 96360; 96361; 99291

== ENCOUNTER → 2021-04-17 | Outpatient (CLI) | payer MEDICARE ==
--- NOTE | 2021-04-18 11:58 | MM ---
Reason for exam: screening (asymptomatic). Last mammogram was performed 1 year and 2 months ago. History: Patient has history of other cancer at age 48. Family history of breast cancer in 2 maternal aunts. Physical Findings: A clinical breast exam by your physician is recommended on an annual basis and results should be correlated with mammographic findings. MG Screening Mammo w CAD Bilateral CC and MLO view(s) were taken. Prior study comparison: February 27, 2020, bilateral MG screening mammo w CAD. July 26, 2018, bilateral MG screening mammo w CAD. There are scattered fibroglandular densities. There is chronic nodularity in the left breast. No significant changes when compared with prior studies. ASSESSMENT: Benign, BI-RAD 2 RECOMMENDATION: Routine screening mammogram of both breasts in 1 year.
== END ==
LOC: RADMAMWWP 09:46
PROVIDERS: ATTEND Internal Medicine
DX: Z12.31 Encounter for screening mammogram for malignant neoplasm of breast (principal); Z80.3 Family history of malignant neoplasm of breast; R92.8 Other abnormal and inconclusive findings on diagnostic imaging of breast
CPT/HCPCS: 77067

== ENCOUNTER → 2021-05-28 | Outpatient (CLI) | payer MEDICARE | END | disposition home or self-care (01) | LOC: LABWHC1 10:54 | PROVIDERS: ATTEND Internal Medicine | DX: U07.1 COVID-19 (principal) | CPT/HCPCS: U0003; C9803; U0005 ==

== ENCOUNTER 2022-01-03 10:42 | Observation (INO) | payer BC, MEDICARE ==
--- NOTE | 2022-01-03 10:49 | ED ---
Chest Pain HPI - General Chief Complaint: Chest Pain Stated Complaint: chest pain Time Seen by Provider: 01/03/22 10:48 Source: patient, RN notes reviewed Mode of arrival: ambulatory Limitations: no limitations - History of Present Illness Initial Comments: Patient is a 56-year-old female presents to the emergency room complaints of left-sided chest pain with occasional radiation into her left arm. She states that she thought initially yesterday she was having a panic attack and did not present to the emergency room. When the chest pain occurred again today she took nitroglycerin sublingual which which relieved her chest pain. She had nitroglycerin prescribed by Dr. Hammad Drummond sqe after having myocardial infarction last year in October. She denies any associated symptoms including shortness of breath, diaphoresis, headache, dizziness, lower extremity swelling, or orthopnea. She typically takes a baby aspirin at bedtime into the last night but has not taken any doses yet today. She reports currently she is not having chest pain as she took a nitroglycerin around 09:30 in the chest pain was relieved by that medication. In addition to her heart attack she has a history for hyperlipidemia, ischemic cardiomyopathy with EF last year of 20-25%, Hodgkin's lymphoma and migraines. She denies any other complaints or concerns at this time. - Related Data Home Medications Medication Instructions Recorded Confirmed Aspirin 81 mg PO ONCE 11/27/20 11/27/20 Previous Rx's Medication Instructions Recorded Ticagrelor [Brilinta] 90 mg PO BID #180 tab 11/29/20 Atorvastatin [Lipitor] 80 mg PO HS #30 tab 12/01/20 Furosemide [Lasix] 40 mg PO DAILY #30 tab 12/01/20 Nitroglycerin Sl Tabs [Nitrostat] 0.4 mg SUBLINGUAL Q5M PRN #30 tab 12/01/20 carvediloL [Coreg] 3.125 mg PO BID-W/MEALS #60 tab 12/01/20 lisinopriL [Zestril] 5 mg PO DAILY #30 tab 12/01/20 Allergies Allergy/AdvReac Type Severity Reaction Status Date / Time morphine AdvReac Unknown Nausea & Verified 01/03/22 10:47 Vomiting Review of Systems ROS Statement: Those systems with pertinent positive or pertinent negative responses have been documented in the HPI. ROS Other: All systems not noted in ROS Statement are negative. EKG Findings - EKG Comments: EKG Findings:: Sinus rhythm, ventricular rate 80 bpm, DE interval 147 ms, QRS duration 86 ms, QT/QTC 372/407 ms, DE T axis 27, 50, 49 - EKG Results: EKG: sinus rhythm Past Medical History Past Medical History: Cancer, Hyperlipidemia, Myocardial Infarction ([place]) Additional Past Medical History / Comment(s): hodgkins lymphoma, migraines History of Any Multi-Drug Resistant Organisms: None Reported Past Surgical History: Section, Hysterectomy, Orthopedic Surgery, Tubal Ligation Additional Past Surgical History / Comment(s): X2, BONE MARROW 12/28/12, portacath insertion insertion and removal. Past Anesthesia/Blood Transfusion Reactions: No Reported Reaction Past Psychological History: No Psychological Hx Reported Smoking Status: Former smoker Past Alcohol Use History: None Reported Past Drug Use History: None Reported - Past Family History Mother Family Medical History: No Reported History General Exam Limitations: no limitations General appearance: alert, in no apparent distress Head exam: Present: atraumatic, normocephalic, normal inspection Eye exam: Present: normal appearance, PERRL, EOMI. Absent: scleral icterus, conjunctival injection, periorbital swelling ENT exam: Present: normal exam, mucous membranes moist Neck exam: Present: normal inspection. Absent: tenderness, meningismus, lymphad enopathy Respiratory exam: Present: normal lung sounds bilaterally. Absent: respiratory distress, wheezes, rales, rhonchi, stridor Cardiovascular Exam: Present: regular rate, normal rhythm, normal heart sounds. Absent: systolic murmur, diastolic murmur, rubs, gallop, clicks GI/Abdominal exam: Present: soft, normal bowel sounds. Absent: distended, tenderness, guarding, rebound, rigid Rectal exam: Present: deferred Extremities exam: Present: normal inspection, full ROM, normal capillary refill. Absent: tenderness, pedal edema, joint swelling, calf tenderness Back exam: Present: normal inspection Neurological exam: Present: alert, oriented X3, CN II-XII intact Psychiatric exam: Present: normal affect, normal mood Skin exam: Present: warm, dry, intact, normal color. Absent: rash Course Vital Signs 01/03/22 01/03/22 10:45 11:18 Temperature 97.8 F Pulse Rate 81 79 Respiratory 20 16 Rate Blood Pressure 148/84 141/73 O2 Sat by Pulse 98 97 Oximetry Chest Pain MDM - MDM Typical chest pain with left-sided radiation relieved by nitroglycerin at home with previous [place] history. She had PCI to her LAD in October [address] Willard Santana. She is on a beta juanita WILLY inhibitor statin and baby aspirin at home. She has not taken her baby aspirin yet today. High probability for ACS given symptoms were relieved with nitroglycerin. Will check EKG, CMP, CBC, magnesium, troponin and chest x-ray. Will administer 325 [address] of aspirin and place Nitropaste to prevent the need for further doses of sublingual nitroglycerin. Discussed with patient the need for 24-hour observation in the setting of previous [place] with classic chest pain. EKG shows normal sinus rhythm. Chest x-ray shows no acute process. First set of troponin elevated at 0.083. Other labs stable. Slight WBC elevation noted of previously treated for bronchitis with steroids approximately 2 weeks ago. She continues to remain chest pain-free and hemodynamically stable with half-inch of Nitropaste intact. Case discussed with Dr. Nash. Cardiology called regarding patient previous CAD with PCI to LAD and chest pain relieved with nitroglycerin elevated troponin. Cardiology recommends keeping patient in nothing by mouth. Will proceed with observation admission to [facility] on ACS protocol. Disposition Clinical Impression: Chest pain Disposition: ADMITTED IP TO THIS HOSP Condition: Stable Is patient prescribed a controlled substance at d/c from ED?: No Referrals: Josefa St MD [Primary Care Provider] - 1-2 days Time of Disposition: 12:45
[2022-01-03] MEDS ORDERED: ASPIRIN 81 MG PO STA (11:06)
[2022-01-03] MEDS ORDERED: NITROGLYCERIN OINT 1 INCH/GM PACKET TOPICAL STA (11:06)
[2022-01-03 11:41] LABS: Basophils % (A) 0 %; Eosinophils # (A) 0.1 k/uL (0-0.7); Eosinophils % (A) 1 %; HCT 41.5 % (34.0-46.0); Lymphocytes # (A) 3.2 k/uL (1.0-4.8); Lymphocytes % (A) 27 %; MCH 28.5 pg (25.0-35.0); MCHC 33.7 g/dL (31.0-37.0); MCV 84.6 fL (80.0-100.0); Monocytes # (A) 0.5 k/uL (0-1.0); Monocytes % (A) 5 %; Neutrophils # (A) 7.8 k/uL (1.3-7.7); Neutrophils % (A) 66 %; Platelet Count 258 k/uL (150-450); RBC 4.91 m/uL (3.80-5.40); WBC 11.7 k/uL (3.8-10.6)
[2022-01-03 11:49] LABS: INR 0.9 (<1.2); Partial Thromboplastin Time 23.9 sec (22.0-30.0)
[2022-01-03 11:54] LABS: ALT 22 U/L (4-34); AST 27 U/L (14-36); African American GFR (CKD) >90 (>60 ml/min/1.73 sqM); Albumin 4.3 g/dL (3.5-5.0); Alkaline Phosphatase 72 U/L (38-126); Anion Gap 5 mmol/L; Blood Urea Nitrogen 17 mg/dL (7-17); Calcium 9.3 mg/dL (8.4-10.2); Carbon Dioxide 27 mmol/L (22-30); Chloride 106 mmol/L (98-107); Glucose 101 mg/dL (74-99); Magnesium 1.8 mg/dL (1.6-2.3); Non-African American GFR(CKD) >90 (>60 ml/min/1.73 sqM); Potassium 4.4 mmol/L (3.5-5.1); Sodium 138 mmol/L (137-145); Total Bilirubin 0.7 mg/dL (0.2-1.3); Total Protein 6.9 g/dL (6.3-8.2)
--- NOTE | 2022-01-03 12:06 | XR ---
EXAMINATION TYPE: XR chest 2V DATE OF EXAM: 01/03/2022 COMPARISON: Chest x-ray 11/28/2020 HISTORY: Chest pain TECHNIQUE: Frontal and lateral views of the chest are obtained. FINDINGS: There is no focal air space opacity, pleural effusion, or pneumothorax seen. The cardiac silhouette size is within normal limits. The osseous structures are intact, there is thoracic spond ylosis. There are overlying leads. IMPRESSION: No acute cardiopulmonary process.
[2022-01-03] MEDS ORDERED: NITROGLYCERIN SL TABS 0.4 MG TAB SUBLINGUAL PRN (12:38)
[2022-01-03] MEDS ORDERED: HEPARIN SODIUM 1,000 UN/ML (10ML VL) IV PRN (12:38)
[2022-01-03] MEDS ORDERED: HEPARIN SODIUM 1,000 UN/ML (10ML VL) IV ONE (12:38)
[2022-01-03] MEDS: HEPARIN SOD,PORK IN 0.45% NACL 25,000 UNIT in 0.45% NACL 1 250ML.BAG IV SCH (13:03)
[2022-01-03] MEDS ORDERED: ALPRAZolam 0.5 MG TAB PO PRN (14:28)
[2022-01-03] MEDS ORDERED: ALPRAZolam 0.25 MG TAB PO PRN (14:28)
--- NOTE | 2022-01-03 14:55 | P.CRDCN ---
History of Present Illness History of present illness: This is a 55-year-old female with a past medical history significant for coronary artery disease in setting of NSTEMI s/p PCI to proximal LAD , Ischemic cardiomyopathy with improved EF, hyperlipidemia, hypertension, Non-Hodgkins Lymphoma with previous chemotherapy, family history of premature coronary artery disease, former smoker quit in 2014. She follows with Dr. Kirk. We have been asked to see the patient in consultation for chest pain. Patient presents to the ER with complaints of chest discomfort. Yesterday afternoon around 1PM she had some left arm pain. She was later mopping her floors and had left sided chest pain with radiating to her left arm. She had associated diaph oresis. She took a nitro with relief and it resolved. This morning her chest pain returned, became more severe and more frequent. She took Nitro 2 times with relief and presented to the ER for further evaluation. She denies any shortness of breath, palpitations, nausea, vomiting, syncope, near syncope, lightheadedness or dizziness. She is a former smoker quit in 2014. She denies any changes to her medications. She is compliant with her medications. Her chest pain has resolved with Nitro patch DIAGNOSTICS EKG sinus rhythm, heart rate 80, no significant ST ST-T wave abnormalities that suggest ischemia Chest Xray no acute cardiopulmonary process Labs troponin 0.08, sodium 138, potassium 4.4, BUN 17, serum crit 0.6, magnesium 1.8, WBC 1.7, hemoglobin 14, platelets 258 Echo in the office 02/15/2021 revealed EF 55%, borderline LVH, mild to moderate MR and RVSP 33 mmHg Cardiac cath in 10/2020 revealed LAD 95% stenosis, mid segment 70%, left circumflex 5060%, RCA proximally 2030%mid and distal RCA 40%, no gradient across the aortic valve, LVEDP 24 mmHg REVIEW OF SYSTEMS: At the time of my exam: CONSTITUTIONAL: Denies fever or chills. HEENT: Denies blurred vision, vision changes, or eye pain. Denies hemoptysis CARDIOVASCULAR: +chest pain. Denies orthopnea. Denies PND. Denies palpitations RESPIRATORY: Denies shortness of breath. GASTROINTESTINAL: Denies abdominal pain. Denies nausea or vomiting. HEMATOLOGIC: Denies bleeding disorders. GENITOURINARY: Denies any blood in urine. SKIN: Denies pruitis. Denies rash. PHYSICAL EXAM: VITAL SIGNS: Reviewed. GENERAL: Well-developed in no acute distress. HEENT: Head is normocephalic. Pupils are equal, round. Sclerae anicteric. Mucous membranes of the mouth are moist. Neck supple. No JVD or thyromegaly LUNGS: Respirations even and unlabored. Lungs essentially clear to auscultation bilaterally. HEART: Regular rate and rhythm. S1 and S2 heard. ABDOMEN: Soft. Nondistended. Nontender. EXTREMITIES: Normal range of motion. No clubbing or cyanosis. Peripheral pulses intact. No lower extremity edema NEUROLOGIC: Awake and alert. Oriented x 3. ASSESSMENT: NSTEMI History of coronary artery disease in setting of NSTEMI s/p PCI to proximal LAD Ischemic cardiomyopathy with improved EF to 55% Hyperlipidemia Hypertension Non-Hodgkins Lymphoma with previous chemotherapy Family history of premature coronary artery disease Former smoker quit in 2014 PLAN: Trend troponins Repeat EKG IV heparin drip Aspirin, statin Nitro Continue home cardiac medications with lisinopril and carvedilol Plan for cardiac catheterization tomorrow Dr. Fernández. I have discussed the risks, benefits and alternative therapies for the above- mentioned procedure and for both sedation/analgesia as well as necessary blood product administration, if indicated, as they pertain to this patient. The patient has indicated understanding and acceptance of the risks and procedures discussed. Questions have been answered appropriately and she is agreeable to move forward with the above-stated procedure. Further recommendations based on clinical course Nurse practitioner note has been reviewed by physician. Signing provider agrees with the documented findings, assessment, and plan of care. Past Medical History Past Medical History: Cancer, Hyperlipidemia, Myocardial Infarction ([place]) Additional Past Medical History / Comment(s): hodgkins lymphoma, migraines History of Any Multi-Drug Resistant Organisms: None Reported Past Surgical History: Section, Hysterectomy, Orthopedic Surgery, Tubal Ligation Additional Past Surgical History / Comment(s): X2, BONE MARROW 12/28/12, portacath insertion insertion and removal. Past Anesthesia/Blood Transfusion Reactions: No Reported Reaction Past Psychological History: No Psychological Hx Reported Smoking Status: Former smoker Past Alcohol Use History: None Reported Past Drug Use History: None Reported - Past Family History Mother Family Medical History: No Reported History Medications and Allergies Home Medications Medication Instructions Recorded Confirmed Type Aspirin 81 mg PO DAILY 11/27/20 01/03/22 History Atorvastatin [Lipitor] 80 mg PO HS #30 tab 12/01/20 01/03/22 Rx Nitroglycerin Sl Tabs [Nitrostat] 0.4 mg SUBLINGUAL Q5M PRN #30 tab 12/01/20 01/03/22 Rx carvediloL [Coreg] 3.125 mg PO BID-W/MEALS #60 tab 12/01/20 01/03/22 Rx lisinopriL [Zestril] 5 mg PO DAILY #30 tab 12/01/20 01/03/22 Rx Allergies Allergy/AdvReac Type Severity Reaction Status Date / Time morphine AdvReac Unknown Nausea & Verified 01/03/22 13:11 Vomiting Physical Exam Vitals: Vital Signs Temp Pulse Resp BP Pulse Ox 01/03/22 11:18 79 16 141/73 97 01/03/22 10:45 97.8 F 81 20 148/84 98 Intake and Output 01/02/22 01/03/22 01/03/22 22:59 06:59 14:59 Other: Weight 80.739 kg Results 01/03/22 11:21 01/03/22 11:21 Cardiac Enzymes 01/03/22 01/03/22 Range/Units 11:21 11:21 AST 27 (14-36) U/L Troponin I 0.083 H* (0.000-0.034) ng/mL Coagulation 01/03/22 Range/Units 11:21 PT 10.0 (9.0-12.0) sec APTT 23.9 (22.0-30.0) sec CBC 01/03/22 Range/Units 11:21 WBC 11.7 H (3.8-10.6) k/uL RBC 4.91 (3.80-5.40) m/uL Hgb 14.0 (11.4-16.0) gm/dL Hct 41.5 (34.0-46.0) % Plt Count 258 (150-450) k/uL Comprehensive Metabolic Panel 01/03/22 Range/Units 11:21 Sodium 138 (137-145) mmol/L Potassium 4.4 (3.5-5.1) mmol/L Chloride 106 (98-107) mmol/L Carbon Dioxide 27 (22-30) mmol/L BUN 17 (7-17) mg/dL Creatinine 0.67 (0.52-1.04) mg/dL Glucose 101 H (74-99) mg/dL Calcium 9.3 (8.4-10.2) mg/dL AST 27 (14-36) U/L ALT 22 (4-34) U/L Alkaline Phosphatase 72 (38-126) U/L Total Protein 6.9 (6.3-8.2) g/dL Albumin 4.3 (3.5-5.0) g/dL Current Medications Generic Name Dose Route Start Last Admin Trade Name Freq PRN Reason Stop Dose Admin Aspirin 325 mg 01/04/22 09:00 Aspirin 325 Mg Tab PO DAILY [facility] Heparin Sodium (Porcine) 0 unit 01/03/22 12:38 Heparin Sodium 1,000 Un/Ml (10ml Vl) IV Q6HR PRN Protocol Heparin Sodium/Sodium Chloride 250 mls @ 9.689 mls/hr 01/03/22 12:45 25,000 unit/ Sodium Chloride IV .Q24H [facility] Protocol 12 UNITS/KG/HR Nitroglycerin 0.4 mg 01/03/22 12:38 Nitroglycerin Sl Tabs 0.4 Mg Tab SUBLINGUAL Q5M PRN Chest Pain Intake and Output 01/02/22 01/03/22 01/03/22 22:59 06:59 14:59 Other: Weight 80.739 kg Patient Weight 01/04/22 06:59 Weight 80.739 kg 01/03/22 11:21 01/03/22 11:21
[2022-01-03 15:24] LABS: ALT 23 U/L (4-34); AST 27 U/L (14-36); African American GFR (CKD) >90 (>60 ml/min/1.73 sqM); Albumin 4.3 g/dL (3.5-5.0); Alkaline Phosphatase 86 U/L (38-126); Anion Gap 6 mmol/L; Blood Urea Nitrogen 17 mg/dL (7-17); Calcium 9.2 mg/dL (8.4-10.2); Carbon Dioxide 28 mmol/L (22-30); Chloride 105 mmol/L (98-107); Glucose 93 mg/dL (74-99); Magnesium 1.9 mg/dL (1.6-2.3); Non-African American GFR(CKD) >90 (>60 ml/min/1.73 sqM); Potassium 4.1 mmol/L (3.5-5.1); Sodium 139 mmol/L (137-145); Total Bilirubin 0.6 mg/dL (0.2-1.3)
[2022-01-03] MEDS: carvediloL 3.125 MG TAB PO SCH (17:36)
--- NOTE | 2022-01-03 19:20 | P.HPIM ---
History of Present Illness H&P Date: 01/03/22 Chief Complaint: Chest 56-year-old female presents to the emergency room complaints of left- sided chest pain with occasional radiation into her left arm. She states that she thought initially yesterday she was having a panic attack and did not present to the emergency room. When the chest pain occurred again today she took nitroglycerin sublingual which which relieved her chest pain. She had nitroglycerin prescribed by Dr. Hammad Drummond filler leaf cutter long after having myocardial infarction last year in October. She denies any associated symptoms including shortness of breath, diaphoresis, headache, dizziness, lower extremity swelling, or orthopnea. She typically takes a baby aspirin at bedtime into the last night but has not taken any doses yet today. She reports currently she is not having chest pain as she took a nitroglycerin around 09:30 in the chest pain was relieved by that medication. In addition to her heart attack she has a history for hyperlipidemia, ischemic cardiomyopathy with EF last year of 20-25%, Hodgkin's lymphoma and migraines. She denies any other complaints or concerns at this time. EKG sinus rhythm, heart rate 80, no significant ST ST-T wave abnormalities that suggest ischemia Chest Xray no acute cardiopulmonary process Labs troponin 0.08, sodium 138, potassium 4.4, BUN 17, serum crit 0.6, magnesium 1.8, WBC 1.7, hemoglobin 14, platelets 258 Echo in the office 02/15/2021 revealed EF 55%, borderline LVH, mild to moderate MR and RVSP 33 mmHg Cardiac cath in 10/2020 revealed LAD 95% stenosis, mid segment 70%, left circumflex 5060%, RCA proximally 2030%mid and distal RCA 40%, no gradient across the aortic valve, LVEDP 24 mmHg Review of Systems REVIEW OF SYSTEMS: CONSTITUTIONAL: No fever, no malaise, no fatigue. HEENT: No recent visual problems or hearing problems. Denied any sore throat. CARDIOVASCULAR: No chest pain, orthopnea, PND, no palpitations, no syncope. PULMONARY: No shortness of breath, no cough, no hemoptysis. GASTROINTESTINAL: No diarrhea, no nausea, no vomiting, no abdominal pain. NEUROLOGICAL: No headaches, no weakness, no numbness. HEMATOLOGICAL: Denies any bleeding or petechiae. GENITOURINARY: Denies any burning micturition, frequency, or urgency. MUSCULOSKELETAL/RHEUMATOLOGICAL: Denies any joint pain, swelling, or any muscle pain. ENDOCRINE: Denies any polyuria or polydipsia. The rest of the 14-point review of systems is negative. Past Medical History Past Medical History: Cancer, Hyperlipidemia, Myocardial Infarction ([place]) Additional Past Medical History / Comment(s): hodgkins lymphoma, migraines History of Any Multi-Drug Resistant Organisms: None Reported Past Surgical History: Section, Hysterectomy, Orthopedic Surgery, Tubal Ligation Additional Past Surgical History / Comment(s): X2, BONE MARROW 12/28/12, portacath insertion insertion and removal. Past Anesthesia/Blood Transfusion Reactions: No Reported Reaction Past Psychological History: No Psychological Hx Reported Smoking Status: Former smoker Past Alcohol Use History: None Reported Past Drug Use History: None Reported - Past Family History Mother Family Medical History: No Reported History Father Family Medical History: Coronary Artery Disease (CAD), Myocardial Infarction ([place]) Additional Family Medical History / Comment(s): Pt cannot recall at what age father had [place]. She believes he had open heart surgery. Medications and Allergies Home Medications Medication Instructions Recorded Confirmed Type Aspirin 81 mg PO DAILY 11/27/20 01/03/22 History Atorvastatin [Lipitor] 80 mg PO HS #30 tab 12/01/20 01/03/22 Rx Nitroglycerin Sl Tabs [Nitrostat] 0.4 mg SUBLINGUAL Q5M PRN #30 tab 12/01/2010/20 Rx carvediloL [Coreg] 3.125 mg PO BID-W/MEALS #60 tab 12/01/20 01/03/22 Rx lisinopriL [Zestril] 5 mg PO DAILY #30 tab 12/01/20 01/03/22 Rx Allergies Allergy/AdvReac Type Severity Reaction Status Date / Time morphine AdvReac Unknown Nausea & Verified 01/03/22 13:11 Vomiting Physical Exam Vitals: Vital Signs Temp Pulse Resp BP Pulse Ox 01/03/22 13:05 73 16 119/61 96 01/03/22 11:18 79 16 141/73 97 01/03/22 10:45 97.8 F 81 20 148/84 98 Intake and Output 01/02/22 01/03/22 01/03/22 22:59 06:59 14:59 Other: Weight 80.739 kg PHYSICAL EXAMINATION: GENERAL: The patient is alert and oriented x3, not in any acute distress. Well developed, well nourished. HEENT: Pupils are round and equally reacting to light. EOMI. No scleral icterus. No conjunctival pallor. Normocephalic, atraumatic. No pharyngeal erythema. No thyromegaly. CARDIOVASCULAR: S1 and S2 present. No murmurs, rubs, or gallops. PULMONARY: Chest is clear to auscultation, no wheezing or crackles. ABDOMEN: Soft, nontender, nondistended, normoactive bowel sounds. No palpable organomegaly. MUSCULOSKELETAL: No joint swelling or deformity. EXTREMITIES: No cyanosis, clubbing, or pedal edema. NEUROLOGICAL: Gross neurological examination did not reveal any focal deficits. SKIN: No rashes. Results CBC & Chem 7: 01/03/22 11:21 01/03/22 15:05 Labs: Abnormal Lab Results - Last 24 Hours (Table) 01/03/22 01/03/22 01/03/22 Range/Units 11:21 11:21 11:21 WBC 11.7 H (3.8-10.6) k/uL Neutrophils # 7.8 H (1.3-7.7) k/uL Glucose 101 H (74-99) mg/dL Troponin I 0.083 H* (0.000-0.034) ng/mL Assessment and Plan Assessment: 1. NSTEMI; history of CAD with PCI to proximal LAD - Initial troponin elevated at 0.083 and trended up to 0.103; patient has been placed on IV heparin per protocol - Patient has history of ischemic cardiomyopathy with EF of 55% - We will continue to monitor EKG and trend troponin; continue with IV heparin, nitroglycerin, aspirin and statin therapy - Home medications including lisinopril and Coreg is recommended to be continued - Patient is scheduled for cardiac catheterization tomorrow morning 2. Hyperlipidemia; Lipitor 80 mg by mouth daily at bedtime 3. Hypertension; Coreg 3.125 mg by mouth twice a day along with lisinopril 5 mg daily 4. Non-Hodgkin's lymphoma; patient is status post chemotherapy DVT prophylaxis; SCDs/IV heparin CODE STATUS; full code
[2022-01-03] MEDS: ATORVASTATIN 80 MG TAB PO SCH (20:16)
[2022-01-04] MEDS: ASPIRIN 325 MG TAB PO SCH (05:40)
[2022-01-04] MEDS: lisinopriL 5 MG TAB PO SCH (05:40)
[2022-01-04] MEDS: SODIUM CHLORIDE 0.9% 1,000 ML in EMPTY BAG 1 BAG IV SCH ×3 (05:41→23:58)
[2022-01-04] MEDS: carvediloL 3.125 MG TAB PO SCH ×2 (05:41→18:42)
[2022-01-04] MEDS ORDERED: HEPARIN SODIUM,PORCINE 10,000 UNIT in SODIUM CHLORIDE 0.9% 1,000 ML IRRIGATION PRN (07:00)
[2022-01-04] MEDS ORDERED: HEPARIN SODIUM,PORCINE 2,500 UNIT in SODIUM CHLORIDE 0.9% 250 ML IRRIGATION PRN (07:00)
--- NOTE | 2022-01-04 08:03 | P.PN ---
Subjective Progress Note Date: 01/04/22 Principal diagnosis: Acute coronary syndrome The patient is a pleasant 56-year-old female patient with CAD and status post PCI of the LAD as well as history of ischemic cardiomyopathy which has improved and also hypertension and dyslipidemia and history of non-Hodgkin lymphoma as well as history of smoking presented to the hospital with chest discomfort and ruled in for acute coronary event. She was seen this morning [place] she was chest pain-free. She continues to be on anti-ischemic medication as well as anticoagulation. The plan is to pursue with a coronary angiogram in the next few hours. She reports no pain in the chest and no shortness of breath and no dizziness or lightheadedness or heart racing or fluttering pH she doesn't seems to be in any overt congestive heart failure at this point. An echo is in process to be done Objective - Vital Signs Vital signs: Vital Signs Temp 97.8 F 01/04/22 04:00 Pulse 70 01/04/22 04:00 Resp 18 01/04/22 04:00 BP 135/65 01/04/22 04:00 Pulse Ox 97 01/04/22 04:00 FiO2 Intake & Output 01/03/22 01/04/22 01/04/22 18:59 06:59 18:59 Intake Total 69.438 Balance 69.438 Weight 80.739 kg Intake: Intake, IV Titration 69.438 Amount Heparin Sod,Pork in 0.45% 69.438 NaCl 25,000 unit In 0.45 % NaCl 1 250ml.bag @ 12 UNITS/KG/HR 9.689 mls/hr IV .Q24H [facility] Rx#: [id number] Other: Voiding Method Toilet # Voids 1 - Constitutional General appearance: Present: no acute distress - Respiratory Respiratory: bilateral: CTA - Cardiovascular Rhythm: regular Heart sounds: normal: S1, S2 - Labs CBC & Chem 7: 01/03/22 11:21 01/03/22 15:05 Labs: Abnormal Lab Results - Last 24 Hours (Table) 01/03/22 01/03/22 01/03/22 Range/Units 11:21 11:21 11:21 WBC 11.7 H (3.8-10.6) k/uL Neutrophils # 7.8 H (1.3-7.7) k/uL APTT (22.0-30.0) sec Glucose 101 H (74-99) mg/dL Troponin I 0.083 H* (0.000-0.034) ng/mL 01/03/22 01/03/22 01/03/22 Range/Units 14:17 17:18 18:39 WBC (3.8-10.6) k/uL Neutrophils # (1.3-7.7) k/uL APTT 45.4 H (22.0-30.0) sec Glucose (74-99) mg/dL Troponin I 0.101 H* 0.103 H* (0.000-0.034) ng/mL Assessment and Plan Assessment: Assessment #1 acute non-ST deviation myocardial infarction #2 coronary artery disease and status post PCI of the LAD #3 multiple comorbid conditions Plan #1 continue the current medical regimen #2 proceed with a heart catheterization and possible PCI #3 follow-up on the echocardiogram
[2022-01-04 09:17] LABS: Basophils % (A) 0 %; Eosinophils # (A) 0.1 k/uL (0-0.7); Eosinophils % (A) 1 %; HCT 41.4 % (34.0-46.0); HGB 13.2 gm/dL (11.4-16.0); Lymphocytes # (A) 3.5 k/uL (1.0-4.8); Lymphocytes % (A) 37 %; MCH 27.6 pg (25.0-35.0); MCHC 31.8 g/dL (31.0-37.0); MCV 86.7 fL (80.0-100.0); Monocytes # (A) 0.5 k/uL (0-1.0); Monocytes % (A) 5 %; Neutrophils # (A) 5.2 k/uL (1.3-7.7); Neutrophils % (A) 55 %; Platelet Count 219 k/uL (150-450); RBC 4.78 m/uL (3.80-5.40); RDW 13.1 % (11.5-15.5); WBC 9.5 k/uL (3.8-10.6)
[2022-01-04 09:31] LABS: African American GFR (CKD) >90 (>60 ml/min/1.73 sqM); Anion Gap 4 mmol/L; Blood Urea Nitrogen 16 mg/dL (7-17); Calcium 8.9 mg/dL (8.4-10.2); Carbon Dioxide 27 mmol/L (22-30); Chloride 106 mmol/L (98-107); Glucose 118 mg/dL (74-99); Non-African American GFR(CKD) >90 (>60 ml/min/1.73 sqM); Potassium 4.3 mmol/L (3.5-5.1); Sodium 137 mmol/L (137-145)
[2022-01-04] MEDS ORDERED: VERAPAMIL 2.5 MG/ML 2 ML AMP ONE (09:36)
[2022-01-04] MEDS ORDERED: HEPARIN SODIUM 1,000 UN/ML (10ML VL) ONE (09:37)
[2022-01-04] MEDS ORDERED: IV FLUID CONTINUATION 1,000 ML IV ONE (10:05)
[2022-01-04] MEDS ORDERED: MIDAZOLAM 2 MG/2 ML VIAL IV ONE ×2 (10:14→10:16)
[2022-01-04] MEDS ORDERED: fentaNYL (PF) 50 MCG/ML 2 ML AMP IV ONE (10:15)
[2022-01-04] MEDS ORDERED: LIDOCAINE 1% INJ 10MG/ML (5 ML VIAL-PF) SQ ONE (10:15)
[2022-01-04] MEDS ORDERED: VERAPAMIL SYRINGE (5 MG/10 ML) INTRAARTER ONE (10:16)
[2022-01-04] MEDS ORDERED: fentaNYL (PF) 50 MCG/ML 2 ML AMP ONE (10:17)
[2022-01-04] MEDS: HEPARIN SODIUM 1,000 UN/ML (10ML VL) IV ONE ×2 (10:29→10:50)
[2022-01-04] MEDS ORDERED: CLOPIDOGREL 75 MG TAB ONE (10:32)
[2022-01-04] MEDS ORDERED: CLOPIDOGREL 75 MG TAB PO ONE (10:33)
[2022-01-04] MEDS ORDERED: NITROGLYCERIN SL TABS 0.4 MG TAB SUBLINGUAL PRN (10:47)
[2022-01-04] MEDS ORDERED: RX INFO: IV CONTRAST WAS GIVEN 1 EACH MISC MISCELLANE PRN (10:47)
[2022-01-04] MEDS ORDERED: MAG HYDROX/AL HYDROX/SIMETH 30 ML CUP PO PRN (10:47)
[2022-01-04] MEDS ORDERED: ZOLPIDEM 5 MG TAB PO PRN (10:47)
[2022-01-04] MEDS ORDERED: ATROPINE SULFATE 0.1 MG/ML 10ML SYRINGE IV PRN (10:47)
[2022-01-04] MEDS ORDERED: IOPAMIDOL-370 125ML BTL INJ ONE (10:50)
[2022-01-04] MEDS ORDERED: SODIUM CHLORIDE 0.9% 1,000 ML in EMPTY BAG 1 BAG IV SCH (11:00)
[2022-01-04] MEDS: HEPARIN SOD,PORK IN 0.45% NACL 25,000 UNIT in 0.45% NACL 1 250ML.BAG IV SCH (11:28)
[2022-01-04 13:01] VITALS: BMI 34.7
[2022-01-04 16:12] VITALS: RESP 16
--- NOTE | 2022-01-04 16:17 | P.PN ---
Subjective Progress Note Date: 01/04/22 56-year-old female presents to the emergency room complaints of left- sided chest pain with occasional radiation into her left arm. She states that she thought initially yesterday she was having a panic attack and did not present to the emergency room. When the chest pain occurred again today she took nitroglycerin sublingual which which relieved her chest pain. She had nitroglycerin prescribed by Dr. Hammad Drummond wire technician after having myocardial infarction last year in October. She denies any associated symptoms including shortness of breath, diaphoresis, headache, dizziness, lower extremity swelling, or orthopnea. She typically takes a baby aspirin at bedtime into the last night but has not taken any doses yet today. She reports currently she is not having chest pain as she took a nitroglycerin around 09:30 in the chest pain was relieved by that medication. In addition to her heart attack she has a history for hyperlipidemia, ischemic cardiomyopathy with EF last year of 20-25%, Hodgkin's lymphoma and migraines. She denies any other complaints or concerns at this time. EKG sinus rhythm, heart rate 80, no significant ST ST-T wave abnormalities that suggest ischemia Chest Xray no acute cardiopulmonary process Labs troponin 0.08, sodium 138, potassium 4.4, BUN 17, serum crit 0.6, magnesium 1.8, WBC 1.7, hemoglobin 14, platelets 258 Echo in the office 02/15/2021 revealed EF 55%, borderline LVH, mild to moderate MR and RVSP 33 mmHg Cardiac cath in 10/2020 revealed LAD 95% stenosis, mid segment 70%, left circumflex 5060%, RCA proximally 2030%mid and distal RCA 40%, no gradient across the aortic valve, LVEDP 24 mmHg Objective - Vital Signs Vital signs: Vital Signs Temp 97.8 F 01/04/22 04:00 Pulse 70 01/04/22 04:00 Resp 18 01/04/22 04:00 BP 135/65 01/04/22 04:00 Pulse Ox 97 01/04/22 04:00 FiO2 Intake & Output 01/03/22 01/04/22 01/04/22 18:59 06:59 18:59 Intake Total 69.438 Balance 69.438 Weight 80.739 kg Intake: Intake, IV Titration 69.438 Amount Heparin Sod,Pork in 0.45% 69.438 NaCl 25,000 unit In 0.45 % NaCl 1 250ml.bag @ 12 UNITS/KG/HR 9.689 mls/hr IV .Q24H [facility] Rx#: [id number] Other: Voiding Method Toilet # Voids 1 - Exam PHYSICAL EXAMINATION: GENERAL: The patient is alert and oriented x3, not in any acute distress. Well developed, well nourished. HEENT: Pupils are round and equally reacting to light. EOMI. No scleral icterus. No conjunctival pallor. Normocephalic, atraumatic. No pharyngeal erythema. No thyromegaly. CARDIOVASCULAR: S1 and S2 present. No murmurs, rubs, or gallops. PULMONARY: Chest is clear to auscultation, no wheezing or crackles. ABDOMEN: Soft, nontender, nondistended, normoactive bowel sounds. No palpable organomegaly. MUSCULOSKELETAL: No joint swelling or deformity. EXTREMITIES: No cyanosis, clubbing, or pedal edema. NEUROLOGICAL: Gross neurological examination did not reveal any focal deficits. SKIN: No rashes. - Labs CBC & Chem 7: 01/04/22 08:56 01/04/22 08:56 Labs: Abnormal Lab Results - Last 24 Hours (Table) 01/03/22 01/03/22 01/03/22 Range/Units 11:21 11:21 11:21 WBC 11.7 H (3.8-10.6) k/uL Neutrophils # 7.8 H (1.3-7.7) k/uL APTT (22.0-30.0) sec Glucose 101 H (74-99) mg/dL Troponin I 0.083 H* (0.000-0.034) ng/mL 01/03/22 01/03/22 01/03/22 Range/Units 14:17 17:18 18:39 WBC (3.8-10.6) k/uL Neutrophils # (1.3-7.7) k/uL APTT 45.4 H (22.0-30.0) sec Glucose (74-99) mg/dL Troponin I 0.101 H* 0.103 H* (0.000-0.034) ng/mL 01/04/22 Range/Units 08:56 WBC (3.8-10.6) k/uL Neutrophils # (1.3-7.7) k/uL APTT (22.0-30.0) sec Glucose 118 H (74-99) mg/dL Troponin I (0.000-0.034) ng/mL Assessment and Plan Assessment: 1. NSTEMI; history of CAD with PCI to proximal LAD - Initial troponin elevated at 0.083 and trended up to 0.103; patient has been placed on IV heparin per protocol - Patient has history of ischemic cardiomyopathy with EF of 55% - We will continue to monitor EKG and trend troponin; continue with IV heparin, nitroglycerin, aspirin and statin therapy - Home medications including lisinopril and Coreg is recommended to be continued - Patient is scheduled for cardiac catheterization tomorrow morning 2. Hyperlipidemia; Lipitor 80 mg by mouth daily at bedtime 3. Hypertension; Coreg 3.125 mg by mouth twice a day along with lisinopril 5 mg daily 4. Non-Hodgkin's lymphoma; patient is status post chemotherapy DVT prophylaxis; SCDs/IV heparin CODE STATUS; full code
--- NOTE | 2022-01-04 16:52 | P.PCN ---
Date of Procedure: 01/04/22 Operative Findings: CARDIAC CATHETERIZATION AND PERCUTANEOUS CORONARY INTERVENTION PERFORMING PHYSICIAN: Stiven Fernández MD, [facility] PROCEDURE PERFORMED: 1. Selective right and left coronary angiogram 2. Successful stenting of OM 2 of the LCx using 2.0 x 15 mm Fabrizio LIO which with an excellent angiographic results INDICATION: Acute non-ST deviation myocardial infarction in this 56-year-old female patient was known to have coronary artery disease with prior stenting of the LAD COMPLICATION: None APPROACH: Right radial artery LEVEL OF SEDATION: Moderate with the sedation time off 30 minutes PROCEDURE DESCRIPTION: After obtaining an informed consent the patient was brought to the cardiac animal laboratory technician. The right radial artery was cannulated using micropuncture technique, the micropuncture wire passed easily then I placed a 6-[place] sheath. I gave the patient 2 mg of verapamil intra-arterial and 5000 this of heparin intravenous. Subsequently selective right and left coronary angiogram performed using JR4 and JL 3 catheters. Left heart catheterization was not performed. After that I did intervene on the left circumflex. SELECTIVE CORONARY ANGIOGRAM: The right coronary artery: Is a large caliber vessel. Its a dominant vessel. The RCA has mild disease only. Distally bifurcates into PDA and PLV branches with mild disease in both. Left main: Has disease in the range of 20-30%. Bifurcates into a LCx and LAD The left circumflex: Large caliber vessel nondominant vessel. The proximal LCx appeared to have mild disease only. It gives rises into a large OM which bifurcates into 2 subbra nches. The upper subbranch has disease in its ostium appeared to be in the range of 50%. The lower subbranch has a tight lesion appeared to be in the range of 70-80%. Definitely has progressed compared to before The left anterior descending artery: The proximal LAD is a stented and the stent is patent. The mid and distal LAD has mild diffuse disease only. The LAD gives rises into 3 diagonal branches have mild disease only. PCI OF THE LCx: Anticoagulation was initiated using heparin with continuous ACT monitoring. Subsequently I did engage the left main using a JL 3 guiding catheter. I did wire both OM1 and OM 2 using 2 running through wires. Subsequently I did attempt doing direct stenting of the lesion in OM to but the stent would not cross. I had to do predilatation using 2.0 x 12 mm balloon. The balloon was inflated under 12 sal for 20 seconds. Subsequently I advanced a 2.0 x 15 mm stent where the stent was positioned under fluoroscopy guidance and deployed under fluoroscopy guidance. The following angiogram showed excellent angiographic results and the procedure was completed without any complication CONCLUSION: Acute non-ST deviation myocardial infarction Patent stent in the proximal LAD Severe disease involving OM 2 of the LCx. I performed successful stenting of OM with an excellent angiographic results and reduction of stenosis from 80% to 0% POSTPROCEDURE MANAGEMENT: #1 dual antiplatelet therapy for 12 month #2 aggressive cholesterol control #3 follow-up with the patient
[2022-01-04] MEDS: ATORVASTATIN 80 MG TAB PO SCH (20:43)
[2022-01-05 03:34] VITALS: TEMP 97.8
--- NOTE | 2022-01-05 06:07 | P.PN ---
Subjective Progress Note Date: 01/05/22 Principal diagnosis: Acute coronary syndrome The patient is a pleasant 56-year-old female patient with CAD and status post PCI of the LAD as well as history of ischemic cardiomyopathy which has improved and also hypertension and dyslipidemia and history of non-Hodgkin lymphoma as well as history of smoking presented to the hospital with chest discomfort and ruled in for acute coronary event. Subsequently she underwent a heart catheterization which revealed patent stent in the LAD with severe disease involving the LCx. I stented the LCx with a good angiographic results. The patient was seen this morning. He is asymptomatic. She is hemodynamically stable. She is on dual antiplatelet therapy along with high intensity statin. From a cardiovascular standpoint of view, the patient potentially can be discharged home. She to follow-up with her primary sales consulting director as an outpatient Objective - Vital Signs Vital signs: Vital Signs Temp 97.8 F 01/05/22 03:31 Pulse 57 L 01/05/22 03:31 Resp 16 01/05/22 03:31 BP 127/78 01/05/22 03:31 Pulse Ox 99 01/05/22 03:31 FiO2 Intake & Output 01/04/22 01/04/22 01/05/22 06:59 18:59 06:59 Intake Total 69.438 529.596 Balance 69.438 529.596 Weight 80.739 kg Intake: IV 150 Intake, IV Titration 69.438 147.596 Amount Heparin Sod,Pork in 0.45% 69.438 147.596 NaCl 25,000 unit In 0.45 % NaCl 1 250ml.bag @ 12 UNITS/KG/HR 9.689 mls/hr IV .Q24H [facility] Rx#: [id number] Oral 232 Other: Voiding Method Toilet Toilet # Voids 1 2 1 - Constitutional General appearance: Present: no acute distress - Respiratory Respiratory: bilateral: CTA - Cardiovascular Rhythm: regular Heart sounds: normal: S1, S2 Abnormal Heart Sounds: Present: systolic murmur - Labs CBC & Chem 7: 01/04/22 08:56 01/04/22 08:56 Labs: Abnormal Lab Results - Last 24 Hours (Table) 01/04/22 Range/Units 08:56 Glucose 118 H (74-99) mg/dL Assessment and Plan Assessment: Assessment #1 acute non-ST deviation myocardial infarction. Status post PCI of the LCx #2 coronary artery disease and status post PCI of the LAD #3 multiple comorbid conditions Plan #1 continue dual antiplatelet therapy and high intensity statin #2 the patient can be discharged
[2022-01-05] MEDS: carvediloL 3.125 MG TAB PO SCH (06:37)
[2022-01-05] MEDS ORDERED: CLOPIDOGREL 75 MG TAB PO SCH (09:00)
[2022-01-05 09:11] LABS: African American GFR (CKD) >90 (>60 ml/min/1.73 sqM); Anion Gap 7 mmol/L; Basophils % (A) 0 %; Blood Urea Nitrogen 13 mg/dL (7-17); Calcium 8.8 mg/dL (8.4-10.2); Carbon Dioxide 24 mmol/L (22-30); Chloride 107 mmol/L (98-107); Eosinophils # (A) 0.1 k/uL (0-0.7); Eosinophils % (A) 1 %; Glucose 143 mg/dL (74-99); HCT 38.5 % (34.0-46.0); Lymphocytes # (A) 2.4 k/uL (1.0-4.8); Lymphocytes % (A) 26 %; MCHC 33.7 g/dL (31.0-37.0); MCV 86.1 fL (80.0-100.0); Mean Platelet Volume 6.8; Monocytes # (A) 0.4 k/uL (0-1.0); Monocytes % (A) 5 %; Neutrophils # (A) 6.1 k/uL (1.3-7.7); Neutrophils % (A) 67 %; Non-African American GFR(CKD) >90 (>60 ml/min/1.73 sqM); Platelet Count 208 k/uL (150-450); Potassium 4.1 mmol/L (3.5-5.1); RBC 4.47 m/uL (3.80-5.40); RDW 13.4 % (11.5-15.5); Sodium 138 mmol/L (137-145); WBC 9.1 k/uL (3.8-10.6)
[2022-01-05] MEDS: lisinopriL 5 MG TAB PO SCH (10:37)
[2022-01-05] MEDS: ASPIRIN 325 MG TAB PO SCH (10:37)
[2022-01-05] MEDS: HEPARIN SOD,PORK IN 0.45% NACL 25,000 UNIT in 0.45% NACL 1 250ML.BAG IV SCH (10:40)
--- NOTE | 2022-01-05 10:55 | CA ---
Transthoracic Echo Report Name: Jolynn Chowdhury Age: 56 Gender: F : 1965 Exam Date: 01/03/2022 13:07 Exam Location: [facility] Ht (in): 60 Wt (lb): 178 Ordering Physician: Ngoc Encarnacion Attending/Referring Phys: Demand Generation Manager Brook Zarate RDCS Procedure CPT: Indications: nstemi Cardiac Hx: Technical Quality: Very technically difficult study Contrast 1: Lumason Total Dose (mL): 1 Contrast 2: Agitated Saline Total Dose (mL): 1 MEASUREMENTS (Male / Female) Normal Values 2D ECHO LV Diastolic Diameter PLAX 4.0 cm 4.2 - 5.9 / 3.9 - 5.3 cm LV Systolic Diameter PLAX 3.0 cm IVS Diastolic Thickness 1.6 cm 0.6 - 1.0 / 0.6 - 0.9 cm LVPW Diastolic Thickness 1.2 cm 0.6 - 1.0 / 0.6 - 0.9 cm LV Relative Wall Thickness 0.7 RV Internal Dim ED PLAX 1.7 cm LA Volume 47.7 cm??? 18 - 58 / 22 - 52 cm??? M-MODE Aortic Root Diameter MM 2.9 cm LA Systolic Diameter MM 3.2 cm LA Ao Ratio MM 1.1 MV E Point Septal Separation 0.7 cm AV Cusp Separation MM 1.8 cm DOPPLER AV Peak Velocity 115.4 cm/s AV Peak Gradient 5.3 mmHg MV Area PHT 2.8 cm??? Mitral E Point Velocity 80.5 cm/s Mitral A Point Velocity 88.4 cm/s Mitral E to A Ratio 0.9 MV Deceleration Time 268.7 ms MV E' Velocity 6.7 cm/s Mitral E to MV E' Ratio 12.1 TR Peak Velocity 203.5 cm/s TR Peak Gradient 16.6 mmHg Right Ventricular Systolic Press 21.6 mmHg FINDINGS Left Ventricle Severely increased septal wall thickness. Mildly increased posterior wall thickness. Left ventricular ejection fraction is estimated at 55-60 %. Left ventricular cavity size normal. Right Ventricle The right ventricle is normal in size and function. Right Atrium The right atrium is normal in size. Left Atrium The left atrium is normal in size. Mitral Valve Structurally normal mitral valve without significant stenosis or prolapse. There is mitral regurgitation. Aortic Valve Structurally normal aortic valve without significant sclerosis or stenosis. There is no aortic regurgitation. Tricuspid Valve Structurally normal tricuspid valve without significant stenosis. Pulmonary artery systolic pressure is normal. Mild tricuspid regurgitation. Pulmonic Valve Structurally normal pulmonic valve without significant stenosis. There is no pulmonic regurgitation. Pericardium Normal pericardium without effusion. Aorta Normal aortic root dimension. CONCLUSIONS Normal left ventricular dimension and systolic function Please see above for further details Previewed by: Dr. Stiven Fernández MD (Electronically Signed) Final Date: 05 January 2022 10:54
[2022-01-05 12:39] VITALS: BP 165/77; PULSE 71
[2022-01-05 13:04] LABS: Chol/HDL Ratio 2.88 Ratio; LDL Cholesterol,Calculated 46.7 mg/dL (0.0-131.0)
--- NOTE | 2022-02-02 21:29 | P.DS ---
Providers Date of admission: 01/03/22 14:41 Expected date of discharge: 01/05/22 Attending physician: Saman Ulloa Consults: 01/03/22 12:39 Consult Physician Urgent Consulting Provider: Stiven Fernández Consult Reason/Comments: chest pain Do you want consulting provider notified?: Already Contacted 01/04/22 10:47 Consult Physician Routine Consulting Provider: [facility] Consult Reason/Comments: Post Interventional Patient Do you want consulting provider notified?: Already Contacted Primary care physician: Josefa [facility] Course: 56-year-old female presents to the emergency room complaints of left- sided chest pain with occasional radiation into her left arm. She states that she thought initially yesterday she was having a panic attack and did not present to the emergency room. When the chest pain occurred again today she took nitroglycerin sublingual which which relieved her chest pain. She had nitroglycerin prescribed by Dr. Hammad Drummond aemt after having myocardial infarction last year in October. She denies any associated symptoms including shortness of breath, diaphoresis, headache, dizziness, lower extremity swelling, or orthopnea. She typically takes a baby aspirin at bedtime into the last night but has not taken any doses yet today. She reports currently she is not having chest pain as she took a nitroglycerin around 09:30 in the chest pain was relieved by that medication. In addition to her heart attack she has a history for hyperlipidemia, ischemic cardiomyopathy with EF last year of 20-25%, Hodgkin's lymphoma and migraines. She denies any other complaints or concerns at this time. EKG sinus rhythm, heart rate 80, no significant ST ST-T wave abnormalities that suggest ischemia Chest Xray no acute cardiopulmonary process Labs troponin 0.08, sodium 138, potassium 4.4, BUN 17, serum crit 0.6, magnesium 1.8, WBC 1.7, hemoglobin 14, platelets 258 Echo in the office 02/15/2021 revealed EF 55%, borderline LVH, mild to moderate MR and RVSP 33 mmHg Cardiac cath in 10/2020 revealed LAD 95% stenosis, mid segment 70%, left circumflex 5060%, RCA proximally 2030%mid and distal RCA 40%, no gradient across the aortic valve, LVEDP 24 mmHg 1. NSTEMI; history of CAD with PCI to proximal LAD - Initial troponin elevated at 0.083 and trended up to 0.103; patient has been placed on IV heparin per protocol - Patient has history of ischemic cardiomyopathy with EF of 55% - We will continue to monitor EKG and trend troponin; continue with IV heparin, nitroglycerin, aspirin and statin therapy - Home medications including lisinopril and Coreg is recommended to be continued - Patient is scheduled for cardiac catheterization tomorrow morning 2. Hyperlipidemia; Lipitor 80 mg by mouth daily at bedtime 3. Hypertension; Coreg 3.125 mg by mouth twice a day along with lisinopril 5 mg daily 4. Non-Hodgkin's lymphoma; patient is status post chemotherapy 56-year-old female patient with CAD and status post PCI of the LAD as well as history of ischemic cardiomyopathy which has improved and also hypertension and dyslipidemia and history of non-Hodgkin lymphoma as well as history of smoking presented to the hospital with chest discomfort and ruled in for acute coronary event. Subsequently she underwent a heart catheterization which revealed patent stent in the LAD with severe disease involving the LCx; stented the LCx with a good angiographic results. The patient was seen this morning. He is asymptomatic. She is hemodynamically stable. She is on dual antiplatelet therapy along with high intensity statin. From a cardiovascular standpoint of view, the patient potentially can be discharged home. She to follow-up with her primary aemt as an outpatient Patient Condition at Discharge: Stable Plan - Discharge Summary Discharge Rx Participant: No New Discharge Prescriptions: New Aspirin 325 mg PO DAILY tab Clopidogrel [Plavix] 75 mg PO DAILY 30 Days #30 tab Continue Atorvastatin [Lipitor] 80 mg PO HS #30 tab Nitroglycerin Sl Tabs [Nitrostat] 0.4 mg SUBLINGUAL Q5M PRN #30 tab PRN Reason: Chest Pain lisinopriL [Zestril] 5 mg PO DAILY #30 tab carvediloL [Coreg] 3.125 mg PO BID-W/MEALS #60 tab Discontinued Aspirin 81 mg PO DAILY Discharge Medication List Atorvastatin [Lipitor] 80 mg PO HS #30 tab 12/01/20 [Rx] Nitroglycerin Sl Tabs [Nitrostat] 0.4 mg SUBLINGUAL Q5M PRN #30 tab 12/01/20 [Rx] carvediloL [Coreg] 3.125 mg PO BID-W/MEALS #60 tab 12/01/20 [Rx] lisinopriL [Zestril] 5 mg PO DAILY #30 tab 12/01/20 [Rx] Aspirin 325 mg PO DAILY tab 01/05/22 [Rx] Clopidogrel [Plavix] 75 mg PO DAILY 30 Days #30 tab 01/05/22 [Rx] Follow up Appointment(s)/Referral(s): Arden Kirk MD [STAFF PHYSICIAN] - 1 Week (office is closed today, please call to schedule follow up appointment. ) Josefa St MD [Primary Care Provider] - 1-2 days (office is closed today, please call to schedule follow up appointment. ) Patient Instructions/Handouts: Heart Attack (DC), After Radial Heart Catheterization (GEN) Discharge Disposition: HOME SELF-CARE
== END 2022-01-05 14:07 | disposition home or self-care (01) ==
LOC: EC 10:42 → 3SCARD 12:39 → INTOOBSV 14:41 → OBSVTOIN 14:41 → 3SCARD 16:10 → UNDODISIN 01-05 14:07
PROVIDERS: ADMIT Internal Medicine; ATTEND Internal Medicine
DX: I21.4 Non-ST elevation (NSTEMI) myocardial infarction (principal); I25.10 Atherosclerotic heart disease of native coronary artery without angina pectoris; I11.0 Hypertensive heart disease with heart failure; I50.9 Heart failure, unspecified; I08.1 Rheumatic disorders of both mitral and tricuspid valves; C85.90 Non-Hodgkin lymphoma, unspecified, unspecified site; I25.2 Old myocardial infarction; E78.5 Hyperlipidemia, unspecified; E78.00 Pure hypercholesterolemia, unspecified; I25.5 Ischemic cardiomyopathy; G43.909 Migraine, unspecified, not intractable, without status migrainosus; Z87.891 Personal history of nicotine dependence; Z92.21 Personal history of antineoplastic chemotherapy; Z79.899 Other long term (current) drug therapy; Z88.5 Allergy status to narcotic agent; Z79.82 Long term (current) use of aspirin; Z90.710 Acquired absence of both cervix and uterus; Z82.49 Family history of ischemic heart disease and other diseases of the circulatory system
CPT/HCPCS: 96376; 96365; 99285; 36415; 93005; 93458; 80061; 80053; 80048 ×2; 83735; 84484; 85025 ×3; 85610; 85730; 71046; G0378 ×3; C8929; C9600; C1887; C1769 ×2; C1894; C1725; C1874; J2250; J2001; J3010; J1644 ×3; Q9950; Q9967; 93306; 96366

== ENCOUNTER → 2022-04-21 | Outpatient (CLI) | payer MEDICARE ==
--- NOTE | 2022-04-22 08:47 | MM ---
Reason for Exam: Screening (asymptomatic). Last screening mammogram was performed 12 month(s) ago. Patient History: Menarche at age 11. First Full-Term at age 21. Hysterectomy at age 25. Patient has history of breast feeding. Other cancer, age 48. Maternal aunt had breast cancer. Maternal aunt had breast cancer. Risk Values: Pamela 5 year model risk: 1.2%. NCI Lifetime model risk: 8.1%. Prior Study Comparison: 11/22/2015 Bilateral Screening Mammogram, [facility]. 04/24/2017 Bilateral Screening Mammogram, [facility]. 07/26/2018 Bilateral Screening Mammogram, [facility]. 02/27/2020 Bilateral Screening Mammogram, [facility]. 04/17/2021 Bilateral Screening Mammogram, [facility]. Tissue Density: There are scattered fibroglandular densities. Findings: Analyzed By CAD. There is no suspicious group of microcalcifications or new suspicious mass in either breast. Stable chronic nodularity in the left breast. No significant change from prior exams. Overall Assessment: Benign, BI-RAD 2 Management: Screening Mammogram of both breasts in 1 year. A clinical breast exam by your physician is recommended on an annual basis and results should be correlated with mammographic findings. Electronically signed and approved by: Aftab Nunez D.O.
== END | disposition home or self-care (01) ==
LOC: RADMAMWWP 09:52
PROVIDERS: ATTEND Internal Medicine
DX: Z12.31 Encounter for screening mammogram for malignant neoplasm of breast (principal); Z80.3 Family history of malignant neoplasm of breast
CPT/HCPCS: 77063; 77067

== ENCOUNTER → 2023-04-22 | Outpatient (CLI) | payer MEDICARE ==
--- NOTE | 2023-04-22 15:39 | BD ---
EXAMINATION TYPE: Axial Bone Density DATE OF EXAM: 04/22/2023 CLINICAL HISTORY: 57 years old Female. ICD-10 CODE: N95.8 OTHER SPECIFIED MENOPAUSAL Height: 61" Weight: 179.3lbs FRAX RISK QUESTIONS: Alcohol (3 or more units per day): No Family History (Parent hip fracture): No Glucocorticoids (More than 3mos): No (Ex: prednisone, prednisolone, methylprednisolone, dexamethasone, and hydrocortisone). History of Fracture in Adulthood: No Secondary Osteoporosis: 1. Type 1 Diabetes: No 2. Hyperthyroidism: No 3. Menopause before 45: Yes, 26 4. Malnutrition: No 5. Chronic liver disease: No Rheumatoid Arthritis: No Current Tobacco Use: No RISK FACTORS HISTORY OF: Hip Fracture (Right/Left): No Spine Fracture: No History of Wrist Fracture: No Surgery to Spine/Hip(right/left)/Wrist (right/left): No Family History of Osteoporosis: Unknown Active: Yes Diet low in dairy products/other sources of calcium: No Postmenopausal woman: Yes Lost more than 2 inches in height since high school: No Frequent falls: No Poor Health: No Hyperparathyroidism: No Adrenal Insufficiency: No MEDICATIONS: Prednisone or other steroids: No Thyroid Medications: No Osteoporosis Medications: no Additional Medications: Blood pressure/heart meds, cholesterol meds, vitamin D, multivitamin, Additional History: Hx stage 4 Hodgkin's lymphoma, in 2014, chemo EXAM MEASUREMENTS: Bone mineral densitometry was performed using the [facility]. Bone mineral density as measured about the Lumbar spine is: ----- L1-L4(G/cm2): 1.158 T Score Values are as follows: ----- L1: -0.2 ----- L2: -0.9 ----- L3: 0.3 ----- L4: -0.1 ----- L1-L4: -0.2 Z Score Values are as follows: ----- L1: 0.2 ----- L2: -0.5 ----- L3: 0.6 ----- L4: 0.2 ----- L1-L4: 0.2 Baseline @MPH Bone mineral density about the R hip (g/cm2): 0982 Bone mineral density about the L hip (g/cm2): 0.938 T Score values are as follows: -----R Neck: -1.7 -----L Neck: -1.6 -----R Total: -0.2 -----L Total: -0.5 Z Score values are as follows: -----R Neck: -1.0 -----L Neck: -0.9 -----R Total: 0.1 -----L Total: -0.2 Baseline @MPH FRAX%s: The graph provided illustrates a 7.0% chance for a major osteoporotic fx and a 0.6% chance fo r the hips probability for fx in 10 years time. IMPRESSION: Osteopenia (T Score between -2.5 and -1). There is slightly increased risk of fracture and the patient may be considered for treatment. Re-Screen 2-5 years. NOTE: T-SCORE=SD OF THE YOUNG ADULT MEAN.
--- NOTE | 2023-04-24 09:07 | MM ---
Reason for Exam: Screening (asymptomatic). Last screening mammogram was performed 12 month(s) ago. Patient History: Menarche at age 11. First Full-Term at age 21. Hysterectomy at age 25. Patient has history of breast feeding. Other cancer, age 48. Maternal aunt had breast cancer. Maternal aunt had breast cancer. Risk Values: Pamela 5 year model risk: 1.2%. NCI Lifetime model risk: 7.9%. Prior Study Comparison: 02/27/2020 Bilateral Screening Mammogram, [facility]. 04/17/2021 Bilateral Screening Mammogram, [facility]. 04/21/2022 Bilateral MG 3D screening mammo w/cad, [facility]. Tissue Density: There are scattered fibroglandular densities. Findings: Analyzed By CAD. There is no suspicious group of microcalcifications or new suspicious mass in either breast. Overall Assessment: Benign, BI-RAD 2 Management: Screening Mammogram of both breasts in 1 year. . Patient should continue monthly self-breast exams. A clinical breast exam by your physician is recommended on an annual basis. This exam should not preclude additional follow-up of suspicious palpable abnormalities. Note on Pamela scores and lifetime risk: 1. A Pamela score greater than 3% is considered moderate risk. If this is the case, consider specialist referral to assess eligibility for a risk reducing agent. 2. If overall lifetime risk for the development of breast cancer is 20% or higher, the patient may qualify for future screening with alternating mammogram and breast MRI. Electronically signed and approved by: Jhonny Carballo M.D. Radiologis
== END | disposition home or self-care (01) ==
LOC: RADMAMWWP 10:05
PROVIDERS: ATTEND Internal Medicine
DX: Z12.31 Encounter for screening mammogram for malignant neoplasm of breast (principal); M85.89 Other specified disorders of bone density and structure, multiple sites; N95.8 Other specified menopausal and perimenopausal disorders; Z78.0 Asymptomatic menopausal state; Z80.3 Family history of malignant neoplasm of breast
CPT/HCPCS: 77067; 77080

== ENCOUNTER → 2023-09-16 | Outpatient (CLI) | payer MEDICARE ==
--- NOTE | 2023-09-20 22:36 | CTL ---
EXAMINATION TYPE: CT Low Dose Lung DATE OF EXAM ORDERED: 09/16/2023 HISTORY: 57-year-old female former smoker with 60 pack-year history. Quite10 years ago. Lung cancer s creening CT DLP: 123.[address] CTDI: 3.9 mGy Automated exposure control for dose reduction was used. SCREENING VISIT: Baseline COMPARISON: PET CT 07/24/2018 TECHNIQUE: Low dose computed tomography scan was performed through the chest with coronal and sagitta l reconstructions. CT DIAGNOSTIC QUALITY: Satisfactory FINDINGS: Heart is normal size without pericardial effusion. LAD and lesser degree RCA and circumflex coronary artery calcifications are present. Conventional arch vessel branching anatomy with normal caliber to the aorta. Partially calcified prevascular space lymph node measuring 3.3 x 1.6 cm is unchanged. Precarinal lymp h node measuring 8 mm is unchanged. Additional scattered nonenlarged mediastinal lymph nodes are also similar. No progressive thoracic adenopathy compared to 07/24/2018. 5 mm posterior right basilar pulmonary nodule, axial image 159. 4 mm subpleural pulmonary nodule lateral right base, axial image 161. 4 mm subpleural pulmonary nodule posteromedial left midlung, axial image 131. 4 mm inferior lingular pulmonary nodule, axial image 158 3 mm lateral left lower lobe pulmonary nodule, axial image 170. Some strandy atelectasis inferior lingula. Mild emphysematous change. Mild diffuse bronchial wall thi ckening. Visualized upper abdomen shows no gross abnormality. Bones: DISH lower thoracic spine. IMPRESSION: 1. Lungs right stool, benign. A few scattered pulmonary nodules measuring 5 mm or smaller on baseline screening. 2. COPD with mild emphysema. 3. An enlarged, partially calcified prevascular space lymph node remains unchanged from 2019. History and prior PET/CT indicates lymphoma. Findings compatible with chronically treated disease. CT LUNG RAD AND CT CHEST RECOMMENDATION: Lung-Rad 2 Benign Appearance or Behavior: Continue annual sc reening with LDCT in 12 months. S Modifier (other clinically significant findings): None
== END | disposition home or self-care (01) ==
LOC: RADCTMAIN 12:43
PROVIDERS: ATTEND Internal Medicine Hematology & Oncology
DX: Z12.2 Encounter for screening for malignant neoplasm of respiratory organs (principal); J44.9 Chronic obstructive pulmonary disease, unspecified; R59.9 Enlarged lymph nodes, unspecified; J43.9 Emphysema, unspecified; Z87.891 Personal history of nicotine dependence
CPT/HCPCS: 71271

== ENCOUNTER → 2024-05-12 | Outpatient (CLI) | payer MEDICARE ==
--- NOTE | 2024-05-15 02:28 | MM ---
Reason for Exam: Screening (asymptomatic). Last mammogram was performed 1 year(s) and 1 month(s) ago. Patient History: Menarche at age 11. First Full-Term at age 21. Hysterectomy at age 25. Patient has history of breast feeding. Other cancer, age 48. Maternal aunt had breast cancer. Maternal aunt had breast cancer. Risk Values: Pamela 5 year model risk: 1.3%. NCI Lifetime model risk: 7.7%. Prior Study Comparison: 04/17/2021 Bilateral Screening Mammogram, [facility]. 04/21/2022 Bilateral MG 3D screening mammo w/cad, [facility]. 04/22/2023 Bilateral MG screening mammo w CAD, [facility]. Tissue Density: There are scattered areas of fibroglandular density. Findings: Analyzed By CAD. The pattern is symmetrical. Nodularities in the upper outer left breast. No suspicious groups of microcalcifications, spiculated or lobular masses, architectural distortion or other secondary signs of malignancy are mammographically apparent. Overall Assessment: Benign, BI-RAD 2 Management: Screening Mammogram of both breasts in 1 year. A negative mammogram report should not preclude additional follow up of suspicious palpable abnormalities. Patient should continue monthly self breast exam. A clinical breast exam by your physician is recommended on an annual basis and results should be correlated with mammographic findings. Note on Pamela scores and lifetime risk: 1. A Pamela score greater than 3% is considered moderate risk. If this is the case, consider specialist referral to assess eligibility for a risk reducing agent. 2. If overall lifetime risk for the development of breast cancer is 20% or higher, the patient may qualify for future screening with alternating mammogram and breast MRI. [facility], , 05/15/2024 2:25 AM. Electronically signed and approved by: Isaak Logan D.O. Radiologis
== END | disposition home or self-care (01) ==
LOC: RADMAMWWP 14:33
PROVIDERS: ATTEND Internal Medicine
DX: Z12.31 Encounter for screening mammogram for malignant neoplasm of breast (principal); R92.323 Mammographic fibroglandular density, bilateral breasts; Z80.3 Family history of malignant neoplasm of breast
CPT/HCPCS: 77063; 77067

== ENCOUNTER → 2024-06-29 | Outpatient (CLI) | payer MEDICARE ==
--- NOTE | 2024-06-29 13:41 | US ---
EXAMINATION TYPE: US kidneys/renal and bladder DATE OF EXAM: 06/29/2024 COMPARISON: US 2018 CLINICAL INDICATION: Female, 58 years old with history of R31.9 [id number] ABNORMAL UTERINE AND VA GINAL B; Hematuria TECHNIQUE: Grayscale imaging of the bilateral kidneys and urinary bladder: FINDINGS: EXAM MEASUREMENTS: Right Kidney: 10.7 x 5.9 x 5.8 cm Left Kidney: 12.3 x 6.0x 5.3 cm Right Kidney: No hydronephrosis or masses seen Left Kidney: * Appearance of anechoic dilated renal pelvis at mid-inferior. Bladder: Appears wnl Bilateral Jets seen: Yes No hydronephrosis. Mildly prominent left renal pelvis. No shadowing renal calculi identified. No roberto d renal mass. Cortical medullary differentiation is maintained bilaterally. Urinary bladder appears w ithin normal limits. Bilateral ureteral jets are identified. IMPRESSION: No hydronephrosis or nephrolithiasis. [facility], , 06/29/2024 1:39 PM
--- NOTE | 2024-06-29 14:28 | US ---
EXAMINATION TYPE: US pelvis complete transvag DATE OF EXAM: 06/29/2024 COMPARISON: PET CT 07/24/2018, US 2018 CLINICAL INDICATION: Female, 58 years old with history of N93.9 ABN UTERINE VAGINAL BLEEDING; Hx hyst erectomy in 1991, pt still has left ovary. Hx 2 miscarriages, 2 abortions. TECHNIQUE: Transvaginal (TV) and Transabdominal (TA) . Transabdominal grayscale sonographic images of the pelvis were acquired. Transvaginal sonographic im ages were medically necessary to better assess the following anatomy: left ovary Doppler imaging: Not performed. FINDINGS: Date of LMP: At time of hysterectomy in 1991 EXAM MEASUREMENTS: Uterus: Surgically absent Endometrial Stripe: Surgically absent Right Ovary: Surgically absent Left Ovary: Not visualized 1. Uterus: Surgically absent 2. Endometrium: Surgically absent 3. Right Ovary: Surgically absent 4. Left Ovary: Not visualized 5. Bilateral Adnexa: Appear wnl 6. Posterior cul-de-sac: Appears wnl The uterus and endometrium are surgical absent. The right ovary surgically absent. Number physician t he left ovary. Hypoechoic, indistinct area seen midline pelvis: 4.0 x 2.0 x 0.7 cm. This may represen t the vaginal cuff. IMPRESSION: 1. Indeterminate indistinct hypoechoic region within the midline pelvis. This may represent the vagi nal cuff. Consider further evaluation with MR as clinically indicated. 2. Postsurgical changes from hysterectomy and right oophorectomy. 3. Nonvisualization of the left ovary. [facility], , 06/29/2024 2:25 PM
== END | disposition home or self-care (01) ==
LOC: RADUSWWP 12:48
PROVIDERS: ATTEND Internal Medicine
DX: R31.9 Hematuria, unspecified (principal); N28.1 Cyst of kidney, acquired
CPT/HCPCS: 76770; 76830; 76856

== ENCOUNTER → 2024-07-23 | Outpatient (CLI) | payer MEDICARE ==
--- NOTE | 2024-07-23 15:11 | MR ---
EXAMINATION TYPE: MR pelvis wo/w con DATE OF EXAM: 07/23/2024 2:38 PM COMPARISON: Ultrasound. CLINICAL INDICATION: Female, 58 years old with history of R19.00 PELVIC MASS IN FEMALE; PHH, Bleeding , Abnormal US, Hx Hodgkin Lymphoma, Hysterectomy 1991, US states still has Left ovary, TECHNIQUE: Triplane multisequence imaging was performed of the pelvis. IV Contrast: 8 mL Gadobutrol FINDINGS: Reproductive: Vagina: Unremarkable. Uterus: The uterus is surgically absent. An ultrasound is that correlate the vaginal cuff. No evidenc e for lymphadenopathy. Left pelvis surgical clip with susceptibility artifact. Ovaries: Ovaries not visualized and may be surgically absent. Bladder: Unremarkable. Bowel: Unremarkable as visualized. Peritoneum: No free fluid or adenopathy. Lymph nodes: No evidence of adenopathy. Vasculature: Unremarkable. Musculoskeletal: Bone marrow signal is within normal signal intensity. Abdominal wall/soft tissues: Unremarkable. IMPRESSION: No organizing fluid collection or mass. No evidence for lymphadenopathy. Finding on ultrasound correl ates with vaginal cuff. [facility], , 07/23/2024 3:09 PM
== END | disposition home or self-care (01) ==
LOC: RADMRIMAIN 13:43
PROVIDERS: ATTEND Internal Medicine
DX: R19.00 Intra-abdominal and pelvic swelling, mass and lump, unspecified site (principal); Z85.71 Personal history of Hodgkin lymphoma; Z90.721 Acquired absence of ovaries, unilateral
CPT/HCPCS: 72197; A9585

== ENCOUNTER → 2024-09-16 | Outpatient (CLI) | payer MEDICARE ==
--- NOTE | 2024-09-16 15:29 | CTL ---
EXAMINATION TYPE: CT Low Dose Lung DATE OF EXAM ORDERED: 09/16/2024 COMPARISON: 09/16/2023 CLINICAL INDICATION: Female, 58 years old with history of Z12.2 LUNG CA SCR F17.210 CURRENT SMOKER; P HH, personal tobacco use, Lung cancer screening, History of Smoking/tobacco use. TECHNIQUE: Low dose computed tomography scan was performed through the chest at 1 mm thick sections a nd reconstructed images in multiple planes at 1 mm and [address] DLP: 80.[address] CTDI: 2.4 mGy Automated exposure control for dose reduction was used. CT DIAGNOSTIC QUALITY: Satisfactory FINDINGS: EXAMINATION TYPE: CT Low Dose Lung DATE OF EXAM ORDERED: 09/16/2024 CLINICAL INDICATION: Female, 58 years old with history of Z12.2 LUNG CA SCR F17.210 CURRENT SMOKER, h istory of tobacco use, Lung cancer screening CT DLP: 80.[address] CTDI: 2.4 mGy Automated exposure control for dose reduction was used. Comparison: None TECHNIQUE: Low dose computed tomography scan was performed through the chest at 1 mm thick sections a nd reconstructed images in multiple planes at 1 mm and [address] DIAGNOSTIC QUALITY: Satisfactory FINDINGS: There are multiple stable bilateral pulmonary nodules the largest of which is a 6.5 mm nodule in the right lower lobe. There are no new or suspicious lung masses or nodules. The lungs are clear and there is no abnormal airspace consolidation or interstitial density. There is a stable 8.2 mm short axis precarinal lymph node. There is a stable densely calcified 16mm a nterior mediastinal lymph node. There is no pleural effusion, pleural thickening or pneumothorax. No focal osseous lesions are seen. Limited scans the upper abdomen reveals no gross abnormality IMPRESSION: 1. Lung rads Category 2 negative. Multiple stable nodules as described above. Continue routine screen ing at yearly intervals. 2. No acute cardiopulmonary disease. 3 stable mediastinal lymph nodes as described above. [facility], , 09/16/2024 3:27 PM
== END | disposition home or self-care (01) ==
LOC: RADCTMAIN 14:46
PROVIDERS: ATTEND Internal Medicine Hematology & Oncology
DX: Z12.2 Encounter for screening for malignant neoplasm of respiratory organs (principal); R91.8 Other nonspecific abnormal finding of lung field; I89.8 Other specified noninfective disorders of lymphatic vessels and lymph nodes; Z87.891 Personal history of nicotine dependence
CPT/HCPCS: 71271